=== PATIENT | male | born 1955 | race Caucasian/White ===

== ENCOUNTER 2017-07-18 12:43 | Emergency (ER) | payer MEDICARE, MEDICAID ==
[2017-07-18] MEDS ORDERED: traMADol 50 MG Tab PO ONE (13:10)
[2017-07-18] MEDS ORDERED: Ketorolac 60 MG/2 ML SDV IM ONE (13:10)
[2017-07-18 15:20] VITALS: BP 135/69
--- NOTE | 2017-07-19 03:49 | ER ---
DATE SEEN: 07/18/2017 TIME SEEN: 1300 hours. CHIEF COMPLAINT: Left foot pain. HISTORY OF PRESENT ILLNESS: This is a 61-year-old male, well known to me, comes in with pain in the left foot for 3 days. No trauma. Started swelling, worse with any weightbearing. PAST MEDICAL HISTORY: Alcohol abuse, depression, type 2 diabetes. ALLERGIES: Please see the electronic record. SOCIAL HISTORY: He drinks alcohol. Does not smoke. PHYSICAL EXAMINATION: VITAL SIGNS: Afebrile. GENERAL: He was not in any distress, has odor of alcohol about him. EXTREMITIES: Left foot revealed swelling and tenderness especially in the lateral aspect, but normal peripheral pulses, and the ankle joint was stable and had full range of motion. DIAGNOSTIC DATA: X-ray of the left foot was negative. IMPRESSION: Pain, foot. PLAN: 60 mg of Toradol IM, and I will also send him home with tramadol 50 mg t.i.d. p.r.n. I would like him to be seen in the office in 1 to 2 weeks. A CAM Walker boot was also sent with him. /[id number] DUSTIN/MIGUEL
--- NOTE | 2017-07-22 11:37 | CR ---
INDICATION: Pain. COMPARISON: 25 February 2016. LEFT FOOT SERIES: Multiple (at least two) partially corticated independent bony elements superior to the proximal to mid navicular bone seen on the lateral view, new. Mild soft tissue thickening, representing edema at this region. No other acute fracture, dislocation, destructive change. Open internal fixation fusion metallic fixation elements traverse the second tarsometatarsal joint, intact and nondisplaced with complete osseous fusion stable. Minimal tibiotalar joint, mild mid foot, hind foot, and moderate forefoot degenerative osteoarthritis change minimally increased, in particular forefoot region. IMPRESSION: 1. Acute versus less likely subacute avulsion fractures superior aspect proximal to mid navicular bone, new. 2. Degenerative osteoarthritis change as described, most prominent in the forefoot region, minimally increased. MTDD
== END 2017-07-18 13:50 | disposition home or self-care (01) ==
LOC: FB.ED 12:43
DX: M79.672 Pain in left foot (principal); F32.9 Major depressive disorder, single episode, unspecified; E11.9 Type 2 diabetes mellitus without complications
CPT/HCPCS: 29515; 73630; 96372; 99283; A9270; J1885

== ENCOUNTER 2017-08-25 01:12 | Emergency (ER) | payer MEDICARE, MEDICAID ==
[2017-08-25] MEDS ORDERED: Ketorolac 30 MG/ML SDV IM ONE (01:36)
--- NOTE | 2017-08-25 02:31 | EDM.PDOC ---
ED HPI GENERAL MEDICAL PROBLEM - General Chief Complaint: Back Pain or Injury Stated Complaint: BACK PAIN,DOUBLE VISION Time Seen by Provider: 08/25/17 02:00 Source of Information: Reports: Patient, Old Records History Limitations: Reports: No Limitations - History of Present Illness INITIAL COMMENTS - FREE TEXT/NARRATIVE: 61 yo male with a pHx of chronic low back pain presents with worsening pain over the past at least a week. He had no new injury. No new bowel or bladder incontinence. Has not been to the clinic during the past week. Can't sleep now due to the pain. Is disabled. Onset: Gradual Onset Date: 08/16/17 Duration: Day(s):, Getting Worse Location: Reports: Back (low) Quality: Reports: Ache Severity: Moderate Improves with: Reports: None Worsens with: Reports: None Context: Reports: Other (chronic low back pain) Associated Symptoms: Reports: No Other Symptoms Treatments TELEVISION JOURNALIST: Reports: Other (see below) (Stretching) - Related Data Allergies Allergy/AdvReac Type Severity Reaction Status Date / Time acetaminophen [From Vicodin] Allergy Itching Verified 08/25/17 01:34 hydrocodone [From Vicodin] Allergy Itching Verified 08/25/17 01:34 hydrocodone bitartrate Allergy Itching Verified 08/25/17 01:34 [From Vicodin] Home Meds: Home Meds Acetaminophen/HYDROcodone [[place] 325-5 MG] 1 - 2 tab PO Q4H PRN #20 tab [Rx] Cyclobenzaprine [Flexeril] 10 mg PO TID PRN #14 tab 08/25/17 [Rx] Past Medical History HEENT History: Reports: Epistaxis Cardiovascular History: Reports: Blood Clots/VTE/DVT, Hypertension Other Cardiovascular History: son states that patient is having an enlarged heart Other Respiratory History: Hx of broken ribs Gastrointestinal History: Reports: GERD Genitourinary History: Reports: Prostate Disorder Musculoskeletal History: Reports: Arthritis, Back Pain, Chronic, Fracture Other Musculoskeletal History: 3 R fx ribs Neurological History: Reports: CVA Psychiatric History: Reports: Addiction, Depression, Other (See Below) Other Psychiatric History: Recent hospitalizations related to alcohol use. Endocrine/Metabolic History: Reports: Diabetes, Type II, Obesity/BMI 30+ Dermatologic History: Reports: Other (See Below) Other Dermatologic History: psoriasis - Infectious Disease History Infectious Disease History: Reports: Chicken Pox, Influenza, Measles, Mumps - Past Surgical History GI Surgical History: Reports: Hernia, Abdominal, Other (See Below) Male Surgical History: Reports: Other (See Below) Musculoskeletal Surgical History: Reports: Arthroscopic Knee Social & Family History - Family History Family Medical History: Noncontributory HEENT: Reports: Macular Degeneration Cardiac: Reports: Hypertension, [place], Other (See Below) Other Cardiac Family History: filter in vein Respiratory: Reports: None GI: Reports: PUD OBGYN: Reports: Musculoskeletal: Reports: Arthritis Neurological: Reports: Alzheimers Disease, CVA Psychiatric: Reports: Bipolar, Depression Endocrine/Metabolic: Reports: None Oncologic: Reports: Other (See Below) Other Oncologic Family History: non specific comments about family - Tobacco Use Smoking Status *Q: Never Smoker Years of Tobacco use: 15 Packs/Tins Daily: 1 Used Tobacco, but Quit: Yes Month Tobacco Last Used: unknown Second Hand Smoke Exposure: No - Caffeine Use Caffeine Use: Reports: Coffee, Soda - Alcohol Use Days Per Week of Alcohol Use: 1 Number of Drinks Per Day: 1 Total Drinks Per Week: 1 - Recreational Drug Use Recreational Drug Use: Yes Drug Use in Last 12 Months: Yes Recreational Drug Type: Reports: Methamphetamine Recreational Drug Use Frequency: Socially - Living Situation & Occupation Living situation: Reports: Occupation: Other ED ROS GENERAL - Review of Systems Review Of Systems: See Below Constitutional: Reports: No Symptoms HEENT: Reports: No Symptoms Respiratory: Reports: No Symptoms Cardiovascular: Reports: No Symptoms GI/Abdominal: Reports: No Symptoms : Reports: No Symptoms Musculoskeletal: Reports: Back Pain Skin: Reports: No Symptoms Neurological: Reports: No Symptoms Psychiatric: Reports: No Symptoms ED EXAM,LOWER BACK PAIN/INJURY - Physical Exam Exam: See Below Exam Limited By: No Limitations General Appearance: Alert, WD/WN, No Apparent Distress, Obese GI/Abdominal: Other (Obese abdomen) Back Exam: Normal Inspection, Vertebral Tenderness, Other (Tender across the beltline including over the lumbar spine. No muscle spasm of the paraspinous muscles. ). No: CVA Tenderness (R), CVA Tenderness (L) Extremities: Normal Inspection, Normal Range of Motion, Non-Tender Neurological: Alert, Normal Mood/Affect, CN II-XII Intact, No Motor/Sensory Deficits, Oriented x 3 Psychiatric: Normal Affect, Normal Mood Skin Exam: Warm, Dry, Intact, Normal Color, No Rash Lymphatic: No Adenopathy Course - Orders/Labs/Meds Meds: Medications Discontinued Medications Generic Name Dose Route Start Last Admin Trade Name Freq PRN Reason Stop Dose Admin Ketorolac Tromethamine 30 mg 08/25/17 01:36 08/25/17 01:44 Toradol IM 08/25/17 01:37 30 mg ONETIME ONE Administration Departure - Departure Time of Disposition: 02:35 Disposition: Home, Self-Care 01 Condition: Fair Clinical Impression: Acute exacerbation of chronic low back pain - Discharge Information Prescriptions: Acetaminophen/HYDROcodone [[place] 325-5 MG] 1 - 2 tab PO Q4H PRN #20 tab PRN Reason: Pain Cyclobenzaprine [Flexeril] 10 mg PO TID PRN #14 tab PRN Reason: Pain Referrals: PCP,None [Primary Care Provider] - Forms: ED Department Discharge Additional Instructions: Take ibuprofen 400 mg every 6 hrs with food. Add Flexeril and [place] as directed for additional pain relief. F/U with a provider of your choice for recheck. No driving when taking [place] or Flexeril.
[2017-08-25] MEDS ORDERED: Acetaminophen/HYDROcodone 325-5 MG Tab PO ONE (02:34)
[2017-08-25] MEDS ORDERED: Cyclobenzaprine 10 MG Tab PO ONE (02:34)
[2017-08-25 03:25] VITALS: BP 145/73
== END 2017-08-25 02:45 | disposition home or self-care (01) ==
LOC: FB.ED 01:12
DX: G89.29 Other chronic pain (principal); M54.5 Low back pain; E66.9 Obesity, unspecified; E11.9 Type 2 diabetes mellitus without complications; Z86.73 Personal history of transient ischemic attack (TIA), and cerebral infarction without residual deficits
CPT/HCPCS: 96372; 99282; A9270; J1885; 99283

== ENCOUNTER 2017-09-24 10:10 | Emergency (ER) | payer MEDICARE, MEDICAID ==
[2017-09-24 11:50] VITALS: BP 124/70
--- NOTE | 2017-09-26 10:18 | ER ---
DATE SEEN: 09/24/2017 TIME SEEN: The patient was seen at 1015 hours. HISTORY OF PRESENT ILLNESS: This 61-year-old who is known to be an alcoholic, notes he drinks alcohol and he acknowledges it himself, and he keeps saying "I am not going to tell you nothing but truth." Notes he has pain in his left chest. He denies recent fall, but he has possibly drank and did not know he fell. PAST MEDICAL HISTORY: Significant for obesity, alcoholism, hypertension, diabetes type 2, depression, obstructive sleep apnea, rib fractures, hypomagnesemia, hypokalemia, dyslipidemia, gallbladder disease, and right shoulder pain. Currently when he takes a deep breath, it causes pain in his left chest. Denies recent fever or productive cough. He denies acid peptic disease, symptoms of burning discomfort, pain with eating, relief of pain after eating, GERD, back pain, abdominal pain, or ear pain. Denies previous hepatitis. Denies blood in his stool, black tarry stool, reflux, or constipation. Musculoskeletal, he notes he has had a right wrist fracture, not too long ago and he has had a splint in it. Had previous history of GERD/esophagitis. CURRENT MEDICATIONS: Not listed on the chart. The patient states he does not take any home medicines, but he has pain pill and Flexeril listed as medicines. We do not have a list of other medicines and the pharmacy is not open to validate his information. REVIEW OF SYSTEMS: HEENT: He denies compromised sinus or sinus congestion, sore throat, or sinus pressure. Ear problems, he has decreased hearing. CARDIORESPIRATORY: He denies chest pain or irregular heartbeat, but he has end- inspiratory chest discomfort with taking a deep breath on the left chest. Denies recent fever. GI: Denies GERD, abdominal discomfort, hepatitis, diarrhea, constipation, blood in the stool, black tarry stool, or flank pain. : Negative. MUSCULOSKELETAL: Negative, although he has mild arthritis of lower extremities. NEURO: Negative. PSYCHIATRIC: Depression. Also history of obstructive sleep apnea. PHYSICAL EXAMINATION: VITAL SIGNS: Blood pressure 124/70, heart rate 101, respirations 18, oxygen saturation 98, temperature is 36.4, 107.5 kg, BMI 32.1. CONSTITUTIONAL: Fair dressed, fair hygiene. He is unshaven. He has decreased hearing. NECK: No bruits. Pharynx without abnormality. No thyromegaly or masses of neck. LUNGS: Clear to auscultation. There are no rales, no rhonchi. HEART: S1, S2. No murmur. No irregularity of heart. CHEST WALL: Left chest wall 8th and 9th ribs, anterior axillary line, moderately tender to palpation. He does not want me to touch them. He has a `[id number]' response. ABDOMEN: Soft. No guarding. No abdominal discomfort. Markedly increased abdominal girth. No bruits. EXTREMITIES: Without pedal edema. Deep tendon reflexes hypoactive in upper and lower extremities. Cranial nerves 2 through 12 intact except for decreased hearing. LABORATORY DATA: Chest x-ray reveals marked cardiomegaly. No fractured ribs. Has mild atelectasis on left side, supradiaphragmatic left lower base of lung and mild atelectasis of right base of lung. ASSESSMENT: 1. Left chest contusion without fracture. 2. Costochondritis, left chest wall 8th and 9th ribs. 3. Morbid obesity. The patient has probably noncompliance with his drugs. He does not know what medicines he is taking. The patient did not have a tachycardia when I examined him, but early on the nurse noted tachycardia. Deconditioning is markedly significant. PLAN: Vicodin for pain. Also, he has extensive psoriasis of the scalp. Massive crusting, white crust noted. Treat with triamcinolone, coal tar shampoo, and Cortisporin Otic drops for ears. Follow up with doctor in 1 week or earlier if worse. /[id number] MALCOLM/MIGUEL GARCIA
--- NOTE | 2017-09-26 11:30 | CR ---
INDICATION: Fell onto chest. LEFT RIBS WITH CHEST: CHEST: PA view of the chest 09/24/2017, compared with 11/14/2016 and 09/04/2016 , again revealed the heart to be enlarged with tortuous aorta calcified in the arch area minimally. Poor inspiration is noted, emphasizing markings and making it difficult to exclude minimal patchy bronchopneumonia at the lung bases or possibly contusion. A definite pneumothorax or pleural effusion was not identified. Mild dextroconvex scoliosis upper thoracic spine is noted. No gross consolidating pneumonia was identified. IMPRESSION: 1. Study limited by poor inspiration. No definite acute process. 2. Possible ASHD. Cannot exclude mild cardiomegaly. LEFT RIBS: Three views of the left ribs revealed a slightly offset fracture at the distal - anterolateral - aspect of the 7th left rib. There is question of an undisplaced fracture at the 6th rib in a similar location - this latter 6th rib possible fracture site - could not be confirmed on other images. IMPRESSION: Definite fracture of the 7th left rib anterolaterally with minimal offset - 1 to 2 mm. Report was called to Dr. Amador for Dr. Cosme at 1020 hours, 2016. [facility]
== END 2017-09-24 12:05 | disposition home or self-care (01) ==
LOC: FB.ED 10:10
DX: S20.212A Contusion of left front wall of thorax, initial encounter (principal); E66.01 Morbid (severe) obesity due to excess calories; M94.0 Chondrocostal junction syndrome [Tietze]; X58.XXXA Exposure to other specified factors, initial encounter; E11.9 Type 2 diabetes mellitus without complications; I10 Essential (primary) hypertension; E78.5 Hyperlipidemia, unspecified; Z68.32 Body mass index [BMI] 32.0-32.9, adult
CPT/HCPCS: 71101-LT; 99283

== ENCOUNTER 2017-09-28 01:49 | Emergency (ER) | payer MEDICARE, MEDICAID ==
[2017-09-28 02:18] VITALS: BP 140/105
== END 2017-09-28 02:38 | disposition left against medical advice (07) ==
LOC: FB.ED 01:49
DX: Z53.21 Procedure and treatment not carried out due to patient leaving prior to being seen by health care provider (principal)
CPT/HCPCS: 99282

== ENCOUNTER 2017-10-01 09:17 | Emergency (ER) | payer MEDICARE, MEDICAID ==
[2017-10-01] MEDS ORDERED: Sodium Chloride 0.9% 10 ML Syringe FLUSH PRN (09:26)
[2017-10-01] MEDS ORDERED: LORazepam 2 MG/ML MDV IVPUSH ONE (09:47)
[2017-10-01] MEDS ORDERED: Ondansetron 4 MG/2 ML SDV IVPUSH ONE (09:48)
[2017-10-01] MEDS ORDERED: Diltiazem 25 MG/5 ML SDV IVPUSH ONE (09:51)
[2017-10-01] MEDS ORDERED: Diltiazem 100 MG in Sodium Chloride 0.9% 100 ML IV SCH (10:00)
[2017-10-01] MEDS ORDERED: MVI, Adult with Vitamin K 10 ML, Thiamine 100 MG, Folic Acid 1 MG, Magnesium Sulfate 3 ... IV SCH ×5 (10:30)
[2017-10-01 11:06] VITALS: BP 154/103
--- NOTE | 2017-10-01 11:22 | EDM.PDOC ---
ED HPI GENERAL MEDICAL PROBLEM - General Chief Complaint: Cardiovascular Problem Stated Complaint: WEAKNESS AND TREMERS Time Seen by Provider: 10/01/17 09:30 Source of Information: Reports: Patient History Limitations: Reports: No Limitations - History of Present Illness INITIAL COMMENTS - FREE TEXT/NARRATIVE: Patient is a 61 year old man who is a chronic alcoholic who drank last yesterday. He awoke today tremoring severely and he has some chest pain from recent rib fractures that is worse. He also was too weak to get up and out of bed so he called for the ambulance to assist him and bring him here. Onset: Today Onset Date: 10/01/17 Onset Time: 08:00 Duration: Hour(s): (2), Getting Worse Location: Reports: Generalized Quality: Reports: Ache Severity: Moderate Improves with: Reports: None Worsens with: Reports: Movement Context: Reports: Other (Chronic alcoholic) Associated Symptoms: Reports: Weakness general Pain Score (Numeric/FACES): 8 ribs right Pain Score (Numeric/FACES): 8 - Related Data Allergies Allergy/AdvReac Type Severity Reaction Status Date / Time hydrocodone [From Vicodin] Allergy Itching Verified 10/01/17 10:33 hydrocodone bitartrate Allergy Itching Verified 10/01/17 10:33 [From Vicodin] Home Meds: Home Meds NK [No Known Home Meds] 10/01/17 [History] Past Medical History HEENT History: Reports: Epistaxis Cardiovascular History: Reports: Arrhythmia, Blood Clots/VTE/DVT, Hypertension Other Cardiovascular History: son states that patient is having an enlarged heart, has irreg HR. Stopped taking BP meds, 'I don't like taking medications. Respiratory History: Reports: Asthma Other Respiratory History: Hx of broken ribs Gastrointestinal History: Reports: Cholelithiasis, Cirrhosis, GERD Other Gastrointestinal History: alcoholic cirrhosis Genitourinary History: Reports: Prostate Disorder Musculoskeletal History: Reports: Arthritis, Back Pain, Chronic, Fracture Other Musculoskeletal History: 3 R fx ribs, fx back, fx L foot Neurological History: Reports: Concussion, CVA Psychiatric History: Reports: Addiction, Anxiety, Depression, Other (See Below) Other Psychiatric History: Recent hospitalizations related to alcohol use. States was in tx x 1 in past. Endocrine/Metabolic History: Reports: Diabetes, Type II, Obesity/BMI 30+ Dermatologic History: Reports: Psoriasis, Other (See Below) Other Dermatologic History: psoriasis - Infectious Disease History Infectious Disease History: Reports: Other (See Below) Other Infectious Disease History: unknown, can't remember. - Past Surgical History HEENT Surgical History: Reports: None GI Surgical History: Reports: Cholecystectomy, Hernia, Abdominal, Other (See Below) Other GI Surgeries/Procedures: needed to have mesh removed from abdomen due to infection. Neurological Surgical History: Reports: None Musculoskeletal Surgical History: Reports: Arthroscopic Knee, ORIF Other Musculoskeletal Surgeries/Procedures:: bilat knee scopes, L foot surgery Social & Family History - Family History Family Medical History: Noncontributory HEENT: Reports: Macular Degeneration Cardiac: Reports: Hypertension, ID, Other (See Below) Other Cardiac Family History: filter in vein Respiratory: Reports: None GI: Reports: PUD OBGYN: Reports: Musculoskeletal: Reports: Arthritis Neurological: Reports: Alzheimers Disease, CVA Psychiatric: Reports: Bipolar, Depression Endocrine/Metabolic: Reports: None Oncologic: Reports: Other (See Below) Other Oncologic Family History: non specific comments about family - Tobacco Use Smoking Status *Q: Former Smoker Years of Tobacco use: 20 Packs/Tins Daily: 1 Used Tobacco, but Quit: Yes Month Tobacco Last Used: 2006 Second Hand Smoke Exposure: No - Caffeine Use Caffeine Use: Reports: None - Alcohol Use Days Per Week of Alcohol Use: 7 Number of Drinks Per Day: 5 Total Drinks Per Week: 35 - Recreational Drug Use Recreational Drug Use: No Drug Use in Last 12 Months: Yes Recreational Drug Type: Reports: Methamphetamine Recreational Drug Use Frequency: Socially - Living Situation & Occupation Living situation: Reports: Occupation: Other ED ROS GENERAL - Review of Systems Review Of Systems: See Below Constitutional: Reports: Weakness HEENT: Reports: No Symptoms Respiratory: Reports: No Symptoms Cardiovascular: Reports: Chest Pain Endocrine: Reports: No Symptoms GI/Abdominal: Reports: No Symptoms : Reports: No Symptoms Musculoskeletal: Reports: No Symptoms Skin: Reports: Rash (Psoriasis) Neurological: Reports: Weakness Psychiatric: Reports: Anxiety Hematologic/Lymphatic: Reports: No Symptoms ED EXAM, GENERAL - Physical Exam Exam: See Below Exam Limited By: No Limitations General Appearance: Alert, WD/WN, No Apparent Distress Eye Exam: Bilateral Eye: EOMI, Normal Fundi, Normal Inspection, PERRL Ears: Normal External Exam, Normal Canal, Hearing Grossly Normal, Normal TMs Ear Exam: Bilateral Ear: Auricle Normal, Canal Normal, TM normal Nose: Normal Inspection, Normal Mucosa, No Blood Throat/Mouth: Normal Inspection, Normal Lips, Normal Teeth, Normal Gums, Normal Oropharynx, Normal Voice, No Airway Compromise Head: Atraumatic, Normocephalic Neck: Normal Inspection, Supple, Non-Tender, Full Range of Motion Respiratory/Chest: No Respiratory Distress, Lungs Clear, Normal Breath Sounds, No Accessory Muscle Use, Chest Non-Tender Cardiovascular: Normal Peripheral Pulses, No Edema, No Gallop, No JVD, No Murmur , No Rub, Irregularly Irregular, Other (EKG shows patient is in Atrial Fibrillation/PSVT) GI/Abdominal: Normal Bowel Sounds, Soft, Non-Tender, No Organomegaly, No Distention, No Abnormal Bruit, No Mass Back Exam: Normal Inspection, Full Range of Motion, NT Extremities: Normal Inspection, Normal Range of Motion, Non-Tender, Normal Capillary Refill, No Pedal Edema Neurological: Alert, Oriented, CN II-XII Intact, Other (Tremoring severely on admission.) Psychiatric: Anxious EKG INTERPRETATION EKG Date: 10/01/17 Rhythm: A-Fib [place]: Normal P-Wave: Absent QRS: Normal ST-T: Normal QT: Prolonged Comparison: Change From Previous EKG Course - Vital Signs Text/Narrative:: Patient was given 1 mg of Lorazepam and a Banana Bag and that took away his tremors and made him feel much better. He then went into PSVT, a Cardizem bolus and then drip was started which decreased his heart rate to 110 and showed that the rhythm was Atrial Fibrillation. Discussed with Dr. Hughes and he feels that given his elevated Troponin and the alcohol withdrawal, that he would be better in [facility]. 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 Last Recorded V/S: Last Vital Signs Temp 36.6 C 10/01/17 09:20 Pulse 130 H 10/01/17 10:09 Resp 22 H 10/01/17 09:20 BP 152/97 H 10/01/17 10:09 Pulse Ox 92 L 10/01/17 09:20 - Orders/Labs/Meds Orders: Active Orders 24 hr Category Date Time Status EKG Documentation Completion [RC] ASDIRECTED Care 10/01/17 09:26 Active Chest 1V Frontal [CR] Stat Exams 10/01/17 09:25 Taken Diltiazem [Cardizem] 100 mg Med 10/01/17 10:00 Active Sodium Chloride 0.9% [Normal Saline] 100 ml IV TITRATE MVI, Adult with Vitamin K [Infuvite Adult] 10 ml Med 10/01/17 10:30 Active Thiamine [Vitamin B-1] 100 mg Folic Acid 1 mg Magnesium Sulfate [Magnesium Sulfate 50%] 3 gm Sodium Chloride 0.9% [Normal Saline] 1,000 ml IV ASDIRECTED Sodium Chloride 0.9% [Saline Flush] Med 10/01/17 09:26 Active 10 ml FLUSH ASDIRECTED PRN Saline Lock Insert [OM.PC] Routine Oth 10/01/17 09:26 Ordered EKG 12 Lead [EK] Routine Ther 10/01/17 09:25 Ordered Medication Orders Diltiazem HCl 100 mg/ Sodium (Chloride) 100 mls @ 5 mls/hr IV TITRATE ADRIAN; 5 MG /HR PRN Reason: Protocol Last Admin: 10/01/17 10:09 Dose: 5 mg/hr, 5 mls/hr Multivitamins/Minerals 10 ml/Thiamine HCl 100 mg/ Folic Acid 1 mg/ Magnesium Sulfate 3 gm/ Sodium Chloride 1,017.2 mls @ 250 mls/hr IV ASDIRECTED ADRIAN Last Admin: 10/01/17 10:46 Dose: 250 mls/hr Sodium Chloride (Saline Flush) 10 ml FLUSH ASDIRECTED PRN PRN Reason: Keep Vein Open Labs: Laboratory Tests 10/01/17 10/01/17 10/01/17 Range/Units 09:50 09:50 09:50 WBC 5.5 (4.5-12.0) X10-3/uL RBC 4.27 L (4.30-5.75) x10(6)uL Hgb 14.9 D (11.5-15.5) g/dL Hct 43.4 (30.0-51.3) % MCV 101.5 H (80-96) fL MCH 34.9 H (27.7-33.6) pg MCHC 34.4 (32.2-35.4) g/dL RDW 15.2 (11.5-15.5) % Plt Count 51 L (125-369) X10(3)uL MPV 10.5 H (7.4-10.4) fL Add Manual Diff Yes Neutrophils % (Manual) 75 (46-82) % Lymphocytes % (Manual) 16 (13-37) % Monocytes % (Manual) 8 (4-12) % Eosinophils % (Manual) 1 (0-5) % Macrocytosis Few Sodium 138 (135-145) mmol/L Potassium 3.3 L (3.5-5.3) mmol/L Chloride 105 D (100-110) mmol/L Carbon Dioxide 18 L (23-29) mmol/L BUN 14 (8-23) mg/dL Creatinine 0.7 (0.6-1.3) mg/dL Est Cr Clr Drug Dosing 121.63 mL/min Estimated GFR (MDRD) > 60 (>60) BUN/Creatinine Ratio 20.0 (9-20) Glucose 188 H (80-116) mg/dL Calcium 9.3 (8.6-10.2) mg/dL Total Bilirubin 4.2 H (0.1-1.3) mg/dL AST 176 H D (5-27) IU/L ALT 62 H D (14-26) IU/L Alkaline Phosphatase 136 H (56-112) IU/L Troponin I 0.08 H (0.02-0.06) NG/ML Total Protein 7.6 (6.0-8.0) g/dL Albumin 3.1 L (3.2-4.6) g/dL Globulin 4.5 g/dL Albumin/Globulin Ratio 0.7 Ethyl Alcohol (<0.01) % 10/01/17 Range/Units 09:50 WBC (4.5-12.0) X10-3/uL RBC (4.30-5.75) x10(6)uL Hgb (11.5-15.5) g/dL Hct (30.0-51.3) % MCV (80-96) fL MCH (27.7-33.6) pg MCHC (32.2-35.4) g/dL RDW (11.5-15.5) % Plt Count (125-369) X10(3)uL MPV (7.4-10.4) fL Add Manual Diff Neutrophils % (Manual) (46-82) % Lymphocytes % (Manual) (13-37) % Monocytes % (Manual) (4-12) % Eosinophils % (Manual) (0-5) % Macrocytosis Sodium (135-145) mmol/L Potassium (3.5-5.3) mmol/L Chloride (100-110) mmol/L Carbon Dioxide (23-29) mmol/L BUN (8-23) mg/dL Creatinine (0.6-1.3) mg/dL Est Cr Clr Drug Dosing mL/min Estimated GFR (MDRD) (>60) BUN/Creatinine Ratio (9-20) Glucose (80-116) mg/dL Calcium (8.6-10.2) mg/dL Total Bilirubin (0.1-1.3) mg/dL AST (5-27) IU/L ALT (14-26) IU/L Alkaline Phosphatase (56-112) IU/L Troponin I (0.02-0.06) NG/ML Total Protein (6.0-8.0) g/dL Albumin (3.2-4.6) g/dL Globulin g/dL Albumin/Globulin Ratio Ethyl Alcohol 0.02 H (<0.01) % Meds: Medications Generic Name Dose Route Start Last Admin Trade Name Freq PRN Reason Stop Dose Admin Diltiazem HCl 100 mg/ Sodium 100 mls @ 5 mls/hr 10/01/17 10:00 10/01/17 10:09 Chloride IV 5 mg/hr TITRATE ADRIAN 5 mls/hr Protocol Administration 5 MG/HR Multivitamins/Minerals 10 ml/ 1,017.2 mls @ 250 mls/hr 10/01/17 10:30 10:46 Thiamine HCl 100 mg/ Folic IV 250 mls/hr Acid 1 mg/ Magnesium Sulfate 3 ASDIRECTED ADRIAN Administration gm/ Sodium Chloride Sodium Chloride 10 ml 10/01/17 09:26 Saline Flush FLUSH ASDIRECTED PRN Keep Vein Open Discontinued Medications Generic Name Dose Route Start Last Admin Trade Name Freq PRN Reason Stop Dose Admin Diltiazem HCl 25 mg 10/01/17 09:51 10/01/17 09:59 Diltiazem IVPUSH 10/01/17 09:52 25 mg ONETIME ONE Administration Lorazepam 1 mg 10/01/17 09:47 10/01/17 10:25 Ativan IVPUSH 10/01/17 09:48 1 mg ONETIME ONE Administration Ondansetron HCl 4 mg 10/01/17 09:48 10/01/17 10:21 Zofran IVPUSH 10/01/17 09:49 4 mg ONETIME ONE Administration Departure - Departure Time of Disposition: 11:31 Disposition: DC/Tfer to Acute Hospital 02 Reason for Transfer *Q: Other Condition: Fair Clinical Impression: Alcohol dependence with withdrawal with complication, Atrial fib/flutter, transient, Elevated troponin I level Referrals: Stan Hughes MD [Primary Care Provider] - Forms: ED Department Discharge - My Orders Last 24 Hours: My Active Orders 10/01/17 09:25 Chest 1V Frontal [CR] Stat EKG 12 Lead [EK] Routine 10/01/17 09:26 EKG Documentation Completion [RC] ASDIRECTED Sodium Chloride 0.9% [Saline Flush] 10 ml FLUSH ASDIRECTED PRN Saline Lock Insert [OM.PC] Routine 10/01/17 10:00 Diltiazem [Cardizem] 100 mg Sodium Chloride 0.9% [Normal Saline] 100 ml IV TITRATE 10/01/17 10:30 MVI, Adult with Vitamin K [Infuvite Adult] 10 ml Thiamine [Vitamin B-1] 100 mg Folic Acid 1 mg Magnesium Sulfate [Magnesium Sulfate 50%] 3 gm Sodium Chloride 0.9% [Normal Saline] 1,000 ml IV ASDIRECTED - Assessment/Plan Last 24 Hours: My Active Orders 10/01/17 09:25 Chest 1V Frontal [CR] Stat EKG 12 Lead [EK] Routine 10/01/17 09:26 EKG Documentation Completion [RC] ASDIRECTED Sodium Chloride 0.9% [Saline Flush] 10 ml FLUSH ASDIRECTED PRN Saline Lock Insert [OM.PC] Routine 10/01/17 10:00 Diltiazem [Cardizem] 100 mg Sodium Chloride 0.9% [Normal Saline] 100 ml IV TITRATE 10/01/17 10:30 MVI, Adult with Vitamin K [Infuvite Adult] 10 ml Thiamine [Vitamin B-1] 100 mg Folic Acid 1 mg Magnesium Sulfate [Magnesium Sulfate 50%] 3 gm Sodium Chloride 0.9% [Normal Saline] 1,000 ml IV ASDIRECTED
--- NOTE | 2017-10-03 13:11 | CR ---
INDICATION: Chest pain. CHEST: A single view of the chest was obtained. The right costophrenic angle was not included on the study, limiting the examination somewhat. The date is 10/01/2017. Findings are compared with 09/24/2017 and 11/14/2016. The heart appears enlarged, as previously. The aorta is calcified in the arch area and slightly tortuous. A definite active infiltrate or effusion was not identified. Evidence of exogenous obesity is noted. IMPRESSION: 1. ASHD with cardiomegaly. 2. No definite acute process. 3. Exogenous obesity. MTDD
== END 2017-10-01 11:45 ==
LOC: FB.ED 09:17
DX: F10.239 Alcohol dependence with withdrawal, unspecified (principal); E66.9 Obesity, unspecified; I48.92 Unspecified atrial flutter; I48.91 Unspecified atrial fibrillation; R79.89 Other specified abnormal findings of blood chemistry; Z87.891 Personal history of nicotine dependence; Z88.8 Allergy status to other drugs, medicaments and biological substances; Y90.0 Blood alcohol level of less than 20 mg/100 ml
CPT/HCPCS: 36415; 71010; 80053; 84484; 85025; 93005; 96365; 96366; 96375; 96376; 99285; G0480; J2060; J2405; J3411; J3475; J3490; J7030; J7040

== ENCOUNTER 2017-12-19 17:31 | Emergency (ER) | payer MEDICAID, MEDICARE ==
[2017-12-19] MEDS ORDERED: Sodium Chloride 0.9% 10 ML Syringe FLUSH PRN (17:47)
--- NOTE | 2017-12-19 17:58 | EDM.PDOC ---
ED HPI GENERAL MEDICAL PROBLEM - General Chief Complaint: Respiratory Problem Stated Complaint: CHEST PAIN Time Seen by Provider: 12/19/17 17:35 Source of Information: Reports: Patient, EMS, Old Records History Limitations: Reports: Other (patient is a poor historian) - History of Present Illness INITIAL COMMENTS - FREE TEXT/NARRATIVE: 62 yo male with chronic afib, obesity, and worsening leg edema presents via EMS on referral from the [facility]. He states a doctor did not see him there. Went to the clinic via private vehicle for SOB/dizziness that occurred going down the stairs at his apartment. Is not normally on oxygen. Has been having occasional spells of SOB at night that awakens him. Claims he hasn't drank in 3 mos, but has a long hx of alcohol abuse. Abdomen and legs both larger than usual. Does not smoke. No chest pain reported. Onset: Other (on and off with a trend toward worsening over the past few weeks.) Duration: Week(s):, Waxing/Waning Location: Reports: Other (legs and abdomen increasing in size.) Quality: Reports: Other (no pain) Severity: Moderate Improves with: Reports: Rest Worsens with: Reports: Movement Context: Reports: Other (fluid retention worsening) Associated Symptoms: Reports: Shortness of Breath, Other (light-headness). 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) - Related Data Allergies Allergy/AdvReac Type Severity Reaction Status Date / Time hydrocodone [From Vicodin] Allergy Itching Verified 12/19/17 17:56 hydrocodone bitartrate Allergy Itching Verified 12/19/17 17:56 [From Vicodin] Home Meds: Home Meds Carvedilol [Carvedilol] 12.5 mg PO BID 12/19/17 [History] DULoxetine HCl [Duloxetine HCl] 60 mg PO DAILY 12/19/17 [History] Diclofenac Sodium [Voltaren] 75 mg PO BID 12/19/17 [History] Diltiazem HCl [Cartia Xt] 120 mg PO DAILY 12/19/17 [History] Lactulose [Lactulose] 30 ml PO BID 12/19/17 [History] Naltrexone [Naltrexone] 50 mg PO DAILY 12/19/17 [History] Ranitidine [Zantac] 75 mg PO BEDTIME 12/19/17 [History] Past Medical History HEENT History: Reports: Epistaxis Cardiovascular History: Reports: Arrhythmia, Blood Clots/VTE/DVT, Hypertension Other Cardiovascular History: son states that patient is having an enlarged heart, has irreg HR. Stopped taking BP meds, 'I don't like taking medications. Respiratory History: Reports: Asthma Other Respiratory History: Hx of broken ribs Gastrointestinal History: Reports: Cholelithiasis, Cirrhosis, GERD Other Gastrointestinal History: alcoholic cirrhosis Genitourinary History: Reports: Prostate Disorder Musculoskeletal History: Reports: Arthritis, Back Pain, Chronic, Fracture Other Musculoskeletal History: 3 R fx ribs, fx back, fx L foot Neurological History: Reports: Concussion, CVA Psychiatric History: Reports: Addiction, Anxiety, Depression, Other (See Below) Other Psychiatric History: Recent hospitalizations related to alcohol use. States was in tx x 1 in past. Endocrine/Metabolic History: Reports: Diabetes, Type II, Obesity/BMI 30+ Dermatologic History: Reports: Psoriasis, Other (See Below) Other Dermatologic History: psoriasis - Infectious Disease History Infectious Disease History: Reports: Other (See Below) Other Infectious Disease History: unknown, can't remember. - Past Surgical History HEENT Surgical History: Reports: None GI Surgical History: Reports: Cholecystectomy, Hernia, Abdominal, Other (See Below) Other GI Surgeries/Procedures: needed to have mesh removed from abdomen due to infection. Neurological Surgical History: Reports: None Musculoskeletal Surgical History: Reports: Arthroscopic Knee, ORIF Other Musculoskeletal Surgeries/Procedures:: bilat knee scopes, L foot surgery Social & Family History - Family History Family Medical History: Noncontributory HEENT: Reports: Macular Degeneration Cardiac: Reports: Hypertension, [place], Other (See Below) Other Cardiac Family History: filter in vein Respiratory: Reports: None GI: Reports: PUD OBGYN: Reports: Musculoskeletal: Reports: Arthritis Neurological: Reports: Alzheimers Disease, CVA Psychiatric: Reports: Bipolar, Depression Endocrine/Metabolic: Reports: None Oncologic: Reports: Other (See Below) Other Oncologic Family History: non specific comments about family - Tobacco Use Smoking Status *Q: Former Smoker Years of Tobacco use: 20 Packs/Tins Daily: 1 Used Tobacco, but Quit: Yes Month Tobacco Last Used: 2006 Second Hand Smoke Exposure: No - Caffeine Use Caffeine Use: Reports: None - Alcohol Use Days Per Week of Alcohol Use: 7 Number of Drinks Per Day: 5 Total Drinks Per Week: 35 - Recreational Drug Use Recreational Drug Use: No Drug Use in Last 12 Months: Yes Recreational Drug Type: Reports: Methamphetamine Recreational Drug Use Frequency: Socially - Living Situation & Occupation Living situation: Reports: Occupation: Other ED ROS GENERAL - Review of Systems Review Of Systems: See Below Constitutional: Reports: No Symptoms HEENT: Reports: No Symptoms Respiratory: Reports: Shortness of Breath. Denies: Wheezing, Cough, Sputum, Hemoptysis Cardiovascular: Reports: Dyspnea on Exertion, Lightheadedness. Denies: Chest Pain, Palpitations (not aware) GI/Abdominal: Reports: Other (increased girth). Denies: Abdominal Pain, Black Stool, Bloody Stool, Constipation, Diarrhea, Decreased Appetite, Difficulty Swallowing, Distension, Flatus, Hematemesis, Hematochezia, Melena, Nausea, Vomiting : Reports: No Symptoms Musculoskeletal: Reports: No Symptoms Skin: Reports: No Symptoms Neurological: Reports: No Symptoms Psychiatric: Reports: No Symptoms ED EXAM, GENERAL - Physical Exam Exam: See Below Exam Limited By: No Limitations General Appearance: Alert, WD/WN, No Apparent Distress, Obese Eye Exam: Bilateral Eye: Normal Inspection Ears: Normal External Exam, Normal Canal, Hearing Grossly Normal, Normal TMs Ear Exam: Bilateral Ear: Auricle Normal, Canal Normal, TM normal Nose: Normal Inspection, Normal Mucosa, No Blood Throat/Mouth: Normal Lips, Normal Oropharynx, Normal Voice, No Airway Compromise , Other Head: Atraumatic, Normocephalic Neck: Normal Inspection Respiratory/Chest: No Respiratory Distress, Lungs Clear, Normal Breath Sounds, No Accessory Muscle Use Cardiovascular: Irregularly Irregular GI/Abdominal: Soft, Non-Tender, Distended. No: Guarding, Rigid, Rebound, Tender Extremities: Pedal Edema. No: Leg Pain, Limited Range of Motion Neurological: Alert, Oriented, CN II-XII Intact, Normal Cognition (normal for him), No Motor/Sensory Deficits Psychiatric: Normal Affect, Normal Mood Skin Exam: Warm, Dry, Intact, Normal Color, No Rash Lymphatic: No Adenopathy Course - Vital Signs Text/Narrative:: Less SOB after furosemide 40 mg IV and spironolactone 50 mg po Last Recorded V/S: Last Vital Signs Temp 36.9 C 12/19/17 17:31 Pulse 78 12/19/17 17:31 Resp 18 12/19/17 17:31 BP 139/69 12/19/17 17:31 Pulse Ox 98 12/19/17 17:31 - Orders/Labs/Meds Orders: Active Orders 24 hr Category Date Time Status Cardiac Monitoring [RC] .As Directed Care 12/19/17 17:46 Active EKG Documentation Completion [RC] ASDIRECTED Care 12/19/17 17:47 Active Oxygen Therapy NICU [Oxygen Therapy, ED] [RC] Care 12/19/17 17:47 Active ASDIRECTED Chest 1V Frontal [CR] Stat Exams 12/19/17 17:49 Taken UA W/MICROSCOPIC [URIN] Stat Lab 12/19/17 17:48 Uncollected Sodium Chloride 0.9% [Saline Flush] Med 12/19/17 17:47 Active 10 ml FLUSH ASDIRECTED PRN Saline Lock Insert [OM.PC] Routine Oth 12/19/17 17:47 Ordered EKG 12 Lead [EK] Routine Ther 12/19/17 17:47 Ordered Medication Orders Sodium Chloride (Saline Flush) 10 ml FLUSH ASDIRECTED PRN PRN Reason: Keep Vein Open Last Admin: 12/19/17 19:00 Dose: 10 ml Labs: Laboratory Tests 12/19/17 12/19/17 12/19/17 Range/Units 17:45 17:45 17:45 WBC 6.2 (4.5-12.0) X10-3/uL RBC 3.40 L (4.30-5.75) x10(6)uL Hgb 11.1 L D (11.5-15.5) g/dL Hct 32.5 D (30.0-51.3) % MCV 95.6 (80-96) fL MCH 32.5 (27.7-33.6) pg MCHC 34.1 (32.2-35.4) g/dL RDW 14.4 (11.5-15.5) % Plt Count 115 L (125-369) X10(3)uL PT (8.7-11.1) INR (0.89-1.13) D-Dimer, Quantitative 338 (100-400) ng/mL Sodium 140 (135-145) mmol/L Potassium 4.0 (3.5-5.3) mmol/L Chloride 107 (100-110) mmol/L Carbon Dioxide 25 (21-32) mmol/L BUN 16 (7-18) mg/dL Creatinine 0.9 (0.70-1.30) mg/dL Est Cr Clr Drug Dosing TNP Estimated GFR (MDRD) > 60 (>60) BUN/Creatinine Ratio 17.8 (9-20) Glucose 127 H (80-116) mg/dL Calcium 8.8 (8.6-10.2) mg/dL Total Bilirubin 1.4 H (0.1-1.3) mg/dL AST 89 H (5-25) IU/L ALT 74 H (12-36) U/L Alkaline Phosphatase 138 H (56-112) IU/L Troponin I (<0.017-0.056) ng/mL NT-Pro-B Natriuret Pep (<=125) pg/mL Total Protein 6.9 (6.0-8.0) g/dL Albumin 2.5 L (3.2-4.6) g/dL Globulin 4.4 g/dL Albumin/Globulin Ratio 0.6 12/19/17 12/19/17 Range/Units 17:45 17:45 WBC (4.5-12.0) X10-3/uL RBC (4.30-5.75) x10(6)uL Hgb (11.5-15.5) g/dL Hct (30.0-51.3) % MCV (80-96) fL MCH (27.7-33.6) pg MCHC (32.2-35.4) g/dL RDW (11.5-15.5) % Plt Count (125-369) X10(3)uL PT 14.0 H (8.7-11.1) INR 1.38 H (0.89-1.13) D-Dimer, Quantitative (100-400) ng/mL Sodium (135-145) mmol/L Potassium (3.5-5.3) mmol/L Chloride (100-110) mmol/L Carbon Dioxide (21-32) mmol/L BUN (7-18) mg/dL Creatinine (0.70-1.30) mg/dL Est Cr Clr Drug Dosing Estimated GFR (MDRD) (>60) BUN/Creatinine Ratio (9-20) Glucose (80-116) mg/dL Calcium (8.6-10.2) mg/dL Total Bilirubin (0.1-1.3) mg/dL AST (5-25) IU/L ALT (12-36) U/L Alkaline Phosphatase (56-112) IU/L Troponin I < 0.017 L (<0.017-0.056) ng/mL NT-Pro-B Natriuret Pep 365 H (<=125) pg/mL Total Protein (6.0-8.0) g/dL Albumin (3.2-4.6) g/dL Globulin g/dL Albumin/Globulin Ratio Meds: Medications Generic Name Dose Route Start Last Admin Trade Name Freq PRN Reason Stop Dose Admin Sodium Chloride 10 ml 12/19/17 17:47 12/19/17 19:00 Saline Flush FLUSH 10 ml ASDIRECTED PRN Administration Keep Vein Open Discontinued Medications Generic Name Dose Route Start Last Admin Trade Name Freq PRN Reason Stop Dose Admin Furosemide 40 mg 12/19/17 18:43 12/19/17 18:55 Lasix IVPUSH 12/19/17 18:44 40 mg NOW ONE Administration Spironolactone 50 mg 12/19/17 18:47 12/19/17 18:55 Aldactone PO 12/19/17 18:48 50 mg ONETIME ONE Administration - Radiology Interpretation Free Text/Narrative:: CXR-fluid overload Departure - Departure Time of Disposition: 20:20 Disposition: Home, Self-Care 01 Condition: Fair Clinical Impression: Chronic atrial fibrillation Fluid overload Qualifiers: Hypervolemia type: unspecified Qualified Code(s): E87.70 - Fluid overload, unspecified Ascites Qualifiers: Ascites type: due to alcoholic cirrhosis Qualified Code(s): K70.31 - Alcoholic cirrhosis of liver with ascites Referrals: Stan Hughes MD [Primary Care Provider] - Forms: ED Department Discharge - My Orders Last 24 Hours: My Active Orders 12/19/17 17:46 Cardiac Monitoring [RC] .As Directed 12/19/17 17:47 EKG Documentation Completion [RC] ASDIRECTED Oxygen Therapy NICU [Oxygen Therapy, ED] [RC] ASDIRECTED Sodium Chloride 0.9% [Saline Flush] 10 ml FLUSH ASDIRECTED PRN Saline Lock Insert [OM.PC] Routine EKG 12 Lead [EK] Routine 12/19/17 17:48 UA W/MICROSCOPIC [URIN] Stat 12/19/17 17:49 Chest 1V Frontal [CR] Stat - Assessment/Plan Last 24 Hours: My Active Orders 12/19/17 17:46 Cardiac Monitoring [RC] .As Directed 12/19/17 17:47 EKG Documentation Completion [RC] ASDIRECTED Oxygen Therapy NICU [Oxygen Therapy, ED] [RC] ASDIRECTED Sodium Chloride 0.9% [Saline Flush] 10 ml FLUSH ASDIRECTED PRN Saline Lock Insert [OM.PC] Routine EKG 12 Lead [EK] Routine 12/19/17 17:48 UA W/MICROSCOPIC [URIN] Stat 12/19/17 17:49 Chest 1V Frontal [CR] Stat
[2017-12-19] MEDS ORDERED: Furosemide 40 MG/4 ML VIAL IVPUSH ONE (18:43)
[2017-12-19] MEDS ORDERED: Spironolactone 50 MG Tab PO ONE (18:47)
[2017-12-19 19:33] VITALS: BP 139/69
--- NOTE | 2017-12-20 14:08 | CR ---
INDICATION: Short of breath. CHEST: AP upright view of the chest, 12/19/2017, was compared with 10/01/2017 and 09/24/2017, again revealing evidence of exogenous obesity. Two images were obtained on the current study. There is blunting of the costophrenic angle on the left, with suggestion of infiltration. Findings may be on the basis of pneumonia and pleuritis. The heart is enlarged. Pulmonary vasculature in the upper lung enciso is prominent. Interstitial changes are present, all suggesting CHF with interstitial lung edema. A minimal amount of alveolar lung edema - acute pulmonary edema - may also be present, with an appearance of minimal alveolar infiltration centrally on the right. Somewhat heavy markings are noted on the right, likely fibrotic in nature. They appear slightly more prominent than on the previous study, raising question of patchy pneumonia and/or pulmonary edema superimposed on fibrosis. IMPRESSION: 1. ASHD with cardiomegaly, CHF, and interstitial lung edema, possibly acute pulmonary edema. 2. Pleuroparenchymal changes left lung base may be on the basis of pneumonia and pleuritis. Also cannot exclude patchy pneumonia in the right mid lung field and lower lung field where minimal alveolar infiltration appears to be present. MTDD
== END 2017-12-19 20:30 | disposition home or self-care (01) ==
LOC: FB.ED 17:31
DX: I48.2 Chronic atrial fibrillation (principal); K70.31 Alcoholic cirrhosis of liver with ascites; E87.70 Fluid overload, unspecified; E11.9 Type 2 diabetes mellitus without complications; Z88.5 Allergy status to narcotic agent; Z79.899 Other long term (current) drug therapy; Z87.891 Personal history of nicotine dependence
CPT/HCPCS: 71045; 80053; 83880; 84484; 85027; 85379; 85610; 93005; 96374; 99285; A9270; J1940; J7050

== ENCOUNTER 2018-07-18 17:00 | Emergency (ER) | payer MEDICARE ==
--- NOTE | 2018-07-18 17:25 | EDM.PDOC ---
ED HPI GENERAL MEDICAL PROBLEM - General Chief Complaint: Back Pain or Injury Stated Complaint: BACK PAIN Time Seen by Provider: 07/18/18 17:10 Source of Information: Reports: Patient History Limitations: Reports: No Limitations - History of Present Illness INITIAL COMMENTS - FREE TEXT/NARRATIVE: Marlo comes into [facility] ED with an exacerbation of chronic back pain this evening. There are no long tract sxs. He has had issues with low back pain for decades following a work related injury. He has had treatment with a DC recently and things seem worse. He has not consulted with a physician regarding the nature or managment of this condition. His PCP is Dr. Hughes. - Related Data Allergies Allergy/AdvReac Type Severity Reaction Status Date / Time hydrocodone [From Vicodin] Allergy Itching Verified 06/15/18 23:05 hydrocodone bitartrate Allergy Itching Verified 06/15/18 23:05 [From Vicodin] Home Meds: Home Meds Carvedilol 12.5 mg PO BID 12/19/17 [History] DULoxetine HCl [Duloxetine HCl] 60 mg PO DAILY 12/19/17 [History] Diltiazem HCl [Cartia Xt] 120 mg PO DAILY 12/19/17 [History] Naltrexone 50 mg PO DAILY 12/19/17 [History] Ranitidine [Zantac] 75 mg PO BEDTIME 12/19/17 [History] Spironolactone [Aldactone] 25 mg PO BID #30 tab 12/19/17 [Rx] Aspirin [Halfprin] 81 mg PO DAILY 02/13/18 [History] Cyanocobalamin (Vitamin B-12) [Vitamin B-12] 250 mcg PO DAILY 02/13/18 [History] Dabigatran [Pradaxa] 150 mg PO BID 02/13/18 [History] Folic Acid 1 mg PO DAILY 02/13/18 [History] Furosemide [Lasix] 40 mg PO BID 02/13/18 [History] Insulin Glarg,Human.Rec.Analog [Lantus Solostar] 28 unit SUBCUT BEDTIME [History] Thiamine [Vitamin B-1] 100 mg PO DAILY 02/13/18 [History] Past Medical History HEENT History: Reports: Epistaxis Cardiovascular History: Reports: Arrhythmia, Blood Clots/VTE/DVT, Hypertension Other Cardiovascular History: son states that patient is having an enlarged heart, has irreg HR. Stopped taking BP meds, 'I don't like taking medications. Respiratory History: Reports: Asthma Other Respiratory History: Hx of broken ribs Gastrointestinal History: Reports: Cholelithiasis, Cirrhosis, GERD Other Gastrointestinal History: alcoholic cirrhosis Genitourinary History: Reports: Prostate Disorder Musculoskeletal History: Reports: Arthritis, Back Pain, Chronic, Fracture Other Musculoskeletal History: 3 R fx ribs, fx back, fx L foot Neurological History: Reports: Concussion, CVA Psychiatric History: Reports: Addiction, Anxiety, Depression, Other (See Below) Other Psychiatric History: Recent hospitalizations related to alcohol use. States was in tx x 1 in past. Endocrine/Metabolic History: Reports: Diabetes, Type II, Obesity/BMI 30+ Dermatologic History: Reports: Psoriasis, Other (See Below) Other Dermatologic History: psoriasis - Infectious Disease History Infectious Disease History: Reports: Other (See Below) Other Infectious Disease History: unknown, can't remember. - Past Surgical History HEENT Surgical History: Reports: None GI Surgical History: Reports: Cholecystectomy, Hernia, Abdominal, Other (See Below) Other GI Surgeries/Procedures: needed to have mesh removed from abdomen due to infection. Neurological Surgical History: Reports: None Musculoskeletal Surgical History: Reports: Arthroscopic Knee, ORIF Other Musculoskeletal Surgeries/Procedures:: bilat knee scopes, L foot surgery Social & Family History - Family History Family Medical History: Noncontributory HEENT: Reports: Macular Degeneration Cardiac: Reports: Hypertension, [place], Other (See Below) Other Cardiac Family History: filter in vein Respiratory: Reports: None GI: Reports: PUD OBGYN: Reports: Musculoskeletal: Reports: Arthritis Neurological: Reports: Alzheimers Disease, CVA Psychiatric: Reports: Bipolar, Depression Endocrine/Metabolic: Reports: None Oncologic: Reports: Other (See Below) Other Oncologic Family History: non specific comments about family - Caffeine Use Caffeine Use: Reports: None - Living Situation & Occupation Living situation: Reports: Occupation: Other ED ROS GENERAL - Review of Systems Review Of Systems: ROS reveals no pertinent complaints other than HPI. ED EXAM,LOWER BACK PAIN/INJURY - Physical Exam Exam: See Below Exam Limited By: No Limitations General Appearance: Alert, WD/WN, Mild Distress, Obese Head: Normocephalic Neck: Normal Inspection, Supple, Non-Tender Respiratory/Chest: Lungs Clear Cardiovascular: Regular Rate, Rhythm GI/Abdominal: Normal Bowel Sounds, Soft, Non-Tender, No Organomegaly, No Distention, No Mass (Male) Exam: Deferred Rectal (Males) Exam: Deferred Back Exam: Decreased Range of Motion, Vertebral Tenderness (L3-4-5) Extremities: Pedal Edema Neurological: Alert, Normal Mood/Affect, CN II-XII Intact, Normal Plantar Flexion, Oriented x 3 Psychiatric: Normal Affect, Flat Affect Skin Exam: Warm, Dry, Intact Lymphatic: No Adenopathy Course - Vital Signs Text/Narrative:: Folowing assessment at the [facility] ED, I administered Toradol 60 mg IM. Patient tolerated well. - Orders/Labs/Meds Meds: Medications Discontinued Medications Generic Name Dose Route Start Last Admin Trade Name Ceasar PRN Reason Stop Dose Admin Ketorolac Tromethamine 60 mg 07/18/18 17:24 Toradol IM 07/18/18 17:25 ONETIME ONE Departure - Departure Time of Disposition: 18:30 Disposition: Home, Self-Care 01 Condition: Fair Clinical Impression: Acute exacerbation of chronic low back pain - Discharge Information *PRESCRIPTION DRUG MONITORING PROGRAM REVIEWED*: Not Applicable *COPY OF PRESCRIPTION DRUG MONITORING REPORT IN PATIENT CHRISTOS: Not Applicable Instructions: Ketorolac injection, Back Pain, Adult Forms: ED Department Discharge - Problem List & Annotations (1) Acute exacerbation of chronic low back pain SNOMED Code(s): 570802522 Code(s): M54.5 - LOW BACK PAIN; G89.29 - OTHER CHRONIC PAIN Status: Acute Current Visit: Yes Annotation/Comment:: I suggested NSAIDs and follow up with PCP. - Problem List Review Problem List Initiated/Reviewed/Updated: Yes - Assessment/Plan Plan: Follow up with PCP.
[2018-07-18] MEDS: Ketorolac 60 MG/2 ML SDV IM ONE (17:31)
[2018-07-18 21:00] VITALS: BP 141/70
== END 2018-07-18 17:56 | disposition home or self-care (01) ==
LOC: FB.ED 17:00
DX: G89.29 Other chronic pain (principal); M54.5 Low back pain; I10 Essential (primary) hypertension; E11.9 Type 2 diabetes mellitus without complications; E66.9 Obesity, unspecified; Z88.8 Allergy status to other drugs, medicaments and biological substances; Z79.899 Other long term (current) drug therapy; Z79.82 Long term (current) use of aspirin
CPT/HCPCS: 96372; 99283; J1885

== ENCOUNTER 2018-11-26 11:05 | Emergency (ER) | payer MEDICARE ==
--- NOTE | 2018-11-26 11:18 | EDM.PDOCBH ---
ED HPI GENERAL MEDICAL PROBLEM - General Chief Complaint: Drug or Alcohol Abuse Stated Complaint: DETOXING Time Seen by Provider: 11/26/18 11:05 Source of Information: Reports: Patient, EMS History Limitations: Reports: Intoxication - History of Present Illness INITIAL COMMENTS - FREE TEXT/NARRATIVE: 63 y.o.w.m with a h/o chronic ETOH abuse, unkempt, came to the ed by EMS after he was bench drinking for 3 weeks. Last ETOH intake was at 8 am today. Pt is not able to ambulate without help. He lives with his , who is not present. Pt his has an asteric fine peripheral tremor, requesting to be transferred to detox where he some time before. No chest pain no SOB. He has a fractured left wrist for which he was seen by Ortho 4 weeks ago, as pint i in place. no other acute medical issues. BP 179/79 Pulse 104 Temp 36.8 RR 20 Pulse ox 98% on RA Onset Date: 11/01/18 Onset Time: 09:00 Duration: Day(s):, Week(s):, Getting Worse Location: Reports: Generalized Quality: Reports: Same as Previous Episode, Other (shakiness) Severity: Moderate Improves with: Reports: Other (rinking ETOH) Worsens with: Reports: Other (no drinking) Context: Reports: Other (etoh abuse for 3 weeks, last ETOH 8 am today) Associated Symptoms: Reports: Confusion, Weakness Left wrist Pain Score (Numeric/FACES): 8 - Related Data Allergies Allergy/AdvReac Type Severity Reaction Status Date / Time hydrocodone [From Vicodin] Allergy Itching Verified 11/26/18 11:22 hydrocodone bitartrate Allergy Itching Verified 11/26/18 11:22 [From Vicodin] Home Meds: Home Meds Carvedilol 12.5 mg PO BID 12/19/17 [History] DULoxetine HCl [Duloxetine HCl] 60 mg PO DAILY 12/19/17 [History] Diltiazem HCl [Cartia Xt] 120 mg PO DAILY 12/19/17 [History] Naltrexone 50 mg PO DAILY 12/19/17 [History] Ranitidine [Zantac] 75 mg PO BEDTIME 12/19/17 [History] Spironolactone [Aldactone] 25 mg PO BID #30 tab 12/19/17 [Rx] Aspirin [Halfprin] 81 mg PO DAILY 02/13/18 [History] Cyanocobalamin (Vitamin B-12) [Vitamin B-12] 250 mcg PO DAILY 02/13/18 [History] Dabigatran [Pradaxa] 150 mg PO BID 02/13/18 [History] Folic Acid 1 mg PO DAILY 02/13/18 [History] Furosemide [Lasix] 40 mg PO BID 02/13/18 [History] Insulin Glarg,Human.Rec.Analog [Lantus Solostar] 28 unit SUBCUT BEDTIME [History] Thiamine [Vitamin B-1] 100 mg PO DAILY 02/13/18 [History] .Magnesium 1 tab PO ASDIRECTED 09/20/18 [History] Past Medical History HEENT History: Reports: Epistaxis Cardiovascular History: Reports: Arrhythmia, Blood Clots/VTE/DVT, Hypertension Other Cardiovascular History: son states that patient is having an enlarged heart, has irreg HR. Stopped taking BP meds, 'I don't like taking medications. Respiratory History: Reports: Asthma Other Respiratory History: Hx of broken ribs Gastrointestinal History: Reports: Cholelithiasis, Cirrhosis, GERD Other Gastrointestinal History: alcoholic cirrhosis Genitourinary History: Reports: Prostate Disorder Musculoskeletal History: Reports: Arthritis, Back Pain, Chronic, Fracture Other Musculoskeletal History: 3 R fx ribs, fx back, fx L foot Neurological History: Reports: Concussion, CVA Psychiatric History: Reports: Addiction, Anxiety, Depression, Other (See Below) Other Psychiatric History: Recent hospitalizations related to alcohol use. States was in tx x 1 in past. Endocrine/Metabolic History: Reports: Diabetes, Type II, Obesity/BMI 30+ Dermatologic History: Reports: Psoriasis, Other (See Below) Other Dermatologic History: psoriasis - Infectious Disease History Infectious Disease History: Reports: Other (See Below) Other Infectious Disease History: unknown, can't remember. - Past Surgical History HEENT Surgical History: Reports: None GI Surgical History: Reports: Cholecystectomy, Hernia, Abdominal, Other (See Below) Other GI Surgeries/Procedures: needed to have mesh removed from abdomen due to infection. Neurological Surgical History: Reports: None Musculoskeletal Surgical History: Reports: Arthroscopic Knee, ORIF Other Musculoskeletal Surgeries/Procedures:: bilat knee scopes, L foot surgery Social & Family History - Family History Family Medical History: Noncontributory HEENT: Reports: Macular Degeneration Cardiac: Reports: Hypertension, MA, Other (See Below) Other Cardiac Family History: filter in vein Respiratory: Reports: None GI: Reports: PUD OBGYN: Reports: Musculoskeletal: Reports: Arthritis Neurological: Reports: Alzheimers Disease, CVA Psychiatric: Reports: Bipolar, Depression Endocrine/Metabolic: Reports: None Oncologic: Reports: Other (See Below) Other Oncologic Family History: non specific comments about family - Caffeine Use Caffeine Use: Reports: None - Living Situation & Occupation Living situation: Reports: Occupation: Other ED ROS GENERAL - Review of Systems Review Of Systems: Unable To Obtain ED EXAM, BEHAVIORAL HEALTH - Physical Exam Exam: See Below Exam Limited By: Intoxication General Appearance: Alert, Moderate Distress, Obese Eye Exam: Bilateral Eye: Normal Inspection Ears: Normal External Exam Nose: Normal Inspection Throat/Mouth: Normal Lips, Normal Voice, No Airway Compromise, Other (poor dentition) Head: Atraumatic, Normocephalic Neck: Normal Inspection, Supple Respiratory/Chest: No Respiratory Distress, Lungs Clear (poor inspiratory effort ), Normal Breath Sounds Cardiovascular: Normal Peripheral Pulses, No Edema, Tachycardia GI/Abdominal: Normal Bowel Sounds, Soft, Non-Tender, No Organomegaly, No Abnormal Bruit, No Mass, Pelvis Stable (Male) Exam: No Hernia Rectal (Males) Exam: Deferred Back Exam: Normal Inspection, Full Range of Motion Extremities: Normal Inspection, Normal Range of Motion, Non-Tender Neurological: Alert, CN II-XII Intact, Oriented x 3, Abnormal Romberg (unsteady gate), Tremor Psychiatric: Depressed Mood Skin Exam: Warm, Dry, Other (unkempt with tinea generalis) EKG INTERPRETATION EKG Date: 11/26/18 Time: 11:20 Rhythm: NSR Rate (Beats/Min): 93 [place]: Normal P-Wave: Present QRS: Normal ST-T: Normal QT: Normal Comparison: NA - No Prior EKG COURSE, BEHAVIORAL HEALTH COMP - Course Vital Signs: Last Vital Signs Temp 36.1 C 11/26/18 11:15 Pulse 107 H 11/26/18 13:35 Resp 20 11/26/18 11:15 BP 172/108 H 11/26/18 13:45 Pulse Ox 98 11/26/18 11:15 63 y.o.w.m with a h/o chronic ETOH abuse, unkempt, came to the ed by EMS after he was bench drinking for 3 weeks. Last ETOH intake was at 8 am today. Pt is not able to ambulate without help. He lives with his , who is not present. Pt his has an asteric fine peripheral tremor, requesting to be transferred to detox where he some time before. No chest pain no SOB. He has a fractured left wrist for which he was seen by Ortho 4 weeks ago, as pint i in place. no other acute medical issues. BP 179/79 Pulse 104 Temp 36.8 RR 20 Pulse ox 98% on RA PE: Unkempt, weak 63 y.o.w.m with ETOH abuse, unsteady gate and a left wrist fracture (4 weeks old) Imaging: Not indicated Labs: CBC pos for MCW 99.4 Plts 74K BMP pos for K 3.2 Mg 0.9 Ca 8.4 ETOH 0.03 UDS was neg Impression: Hypokalemia, hypomagnesia, HTN, ETOH abuse, ETOH abuse last ETOH at 8 am. Low platelets Tx: Mg, potassium, NS. Thiamin, Folic acid, Clonidin Reexam: improved, can walk with assistance Plan: Transfer to [facility] by EMS Orders, Labs, Meds: Active Orders 24 hr Category Date Time Status Sodium Chloride 0.9% [Normal Saline] 1,000 ml Med 11/26/18 11:30 Active IV ASDIRECTED Sodium Chloride 0.9% [Saline Flush] Med 11/26/18 11:20 Active 10 ml FLUSH ASDIRECTED PRN Peripheral IV Insertion Adult [OM.PC] Routine Oth 11/26/18 11:20 Ordered EKG 12 Lead [EK] Routine Ther 11/26/18 11:20 Ordered Medication Orders Sodium Chloride (Normal Saline) 1,000 mls @ 125 mls/hr IV ASDIRECTED ADRIAN Last Admin: 11/26/18 11:46 Dose: 125 mls/hr Sodium Chloride (Saline Flush) 10 ml FLUSH ASDIRECTED PRN PRN Reason: Keep Vein Open Last Admin: 11/26/18 11:43 Dose: 10 ml Laboratory Tests 11/26/18 11/26/18 11/26/18 Range/Units 11:40 11:40 11:40 WBC 5.7 (4.5-12.0) X10-3/uL RBC 4.22 L (4.30-5.75) x10(6)uL Hgb 14.1 (11.5-15.5) g/dL Hct 42.0 (30.0-51.3) % MCV 99.4 H (80-96) fL MCH 33.4 (27.7-33.6) pg MCHC 33.6 (32.2-35.4) g/dL RDW 14.8 (11.5-15.5) % Plt Count 74 L (125-369) X10(3)uL MPV 9.7 (7.4-10.4) fL Neut % (Auto) 76.9 (46-82) % Lymph % (Auto) 14.7 (13-37) % [place] % (Auto) 7.6 (4-12) % Eos % (Auto) 0 L (1.0-5.0) % Baso % (Auto) 1 (0-2) % Neut # (Auto) 4.5 (1.6-8.3) # Lymph # (Auto) 0.8 (0.6-5.0) # [place] # (Auto) 0.4 (0.0-1.3) # Eos # (Auto) 0.0 (0.0-0.8) # Baso # (Auto) 0.0 (0.0-0.2) # Sodium 138 (135-145) mmol/L Potassium 3.2 L (3.5-5.3) mmol/L Chloride 99 L (100-110) mmol/L Carbon Dioxide 27 (21-32) mmol/L BUN 8 (7-18) mg/dL Creatinine 0.8 (0.70-1.30) mg/dL Est Cr Clr Drug Dosing 103.74 mL/min Estimated GFR (MDRD) > 60 (>60) BUN/Creatinine Ratio 10.0 (9-20) Glucose 200 H (80-116) mg/dL Calcium 8.4 L (8.6-10.2) mg/dL Magnesium (1.8-2.5) mg/dL Troponin I < 0.017 L (<0.017-0.056) ng/mL Urine Opiates Screen (NEGATIVE) Ur Oxycodone Screen (NEGATIVE) Ur Propoxyphene Screen (NEGATIVE) Ur Barbituates Screen (NEGATIVE) Ur Tricyclics Screen (NEGATIVE) Ur Phencyclidine Scrn (NEGATIVE) Ur Amphetamine Screen (NEGATIVE) Urine MDMA Screen (NEGATIVE) U Benzodiazepines Scrn (NEGATIVE) U Cocaine Metab Screen (NEGATIVE) U Marijuana (THC) Screen (NEGATIVE) Ethyl Alcohol < 0.03 (<0.03) % 11/26/18 11/26/18 Range/Units 11:40 12:10 WBC (4.5-12.0) X10-3/uL RBC (4.30-5.75) x10(6)uL Hgb (11.5-15.5) g/dL Hct (30.0-51.3) % MCV (80-96) fL MCH (27.7-33.6) pg MCHC (32.2-35.4) g/dL RDW (11.5-15.5) % Plt Count (125-369) X10(3)uL MPV (7.4-10.4) fL Neut % (Auto) (46-82) % Lymph % (Auto) (13-37) % [place] % (Auto) (4-12) % Eos % (Auto) (1.0-5.0) % Baso % (Auto) (0-2) % Neut # (Auto) (1.6-8.3) # Lymph # (Auto) (0.6-5.0) # [place] # (Auto) (0.0-1.3) # Eos # (Auto) (0.0-0.8) # Baso # (Auto) (0.0-0.2) # Sodium (135-145) mmol/L Potassium (3.5-5.3) mmol/L Chloride (100-110) mmol/L Carbon Dioxide (21-32) mmol/L BUN (7-18) mg/dL Creatinine (0.70-1.30) mg/dL Est Cr Clr Drug Dosing mL/min Estimated GFR (MDRD) (>60) BUN/Creatinine Ratio (9-20) Glucose (80-116) mg/dL Calcium (8.6-10.2) mg/dL Magnesium 0.9 L* (1.8-2.5) mg/dL Troponin I (<0.017-0.056) ng/mL Urine Opiates Screen Negative (NEGATIVE) Ur Oxycodone Screen Negative (NEGATIVE) Ur Propoxyphene Screen Negative (NEGATIVE) Ur Barbituates Screen Negative (NEGATIVE) Ur Tricyclics Screen Negative (NEGATIVE) Ur Phencyclidine Scrn Negative (NEGATIVE) Ur Amphetamine Screen Negative (NEGATIVE) Urine MDMA Screen Negative (NEGATIVE) U Benzodiazepines Scrn Negative (NEGATIVE) U Cocaine Metab Screen Negative (NEGATIVE) U Marijuana (THC) Screen Negative (NEGATIVE) Ethyl Alcohol (<0.03) % Medications Generic Name Dose Route Start Last Admin Trade Name Freq PRN Reason Stop Dose Admin Sodium Chloride 1,000 mls @ 125 mls/hr 11/26/18 11:30 11/26/18 11:46 Normal Saline IV 125 mls/hr ASDIRECTED ADRIAN Administration Sodium Chloride 10 ml 11/26/18 11:20 11/26/18 11:43 Saline Flush FLUSH 10 ml ASDIRECTED PRN Administration Keep Vein Open Discontinued Medications Generic Name Dose Route Start Last Admin Trade Name Freq PRN Reason Stop Dose Admin Clonidine HCl 0.1 mg 11/26/18 13:41 11/26/18 13:45 Catapres PO 11/26/18 13:42 0.1 mg ONETIME ONE Administration Folic Acid 1 mg 11/26/18 11:20 11/26/18 12:02 Folic Acid PO 11/26/18 11:21 1 mg ONETIME ONE Administration Thiamine HCl 100 mg/ Sodium 101 mls @ 202 mls/hr 11/26/18 11:20 11/26/18 12: 02 Chloride IV 11/26/18 11:21 202 mls/hr ONETIME ONE Administration Magnesium Sulfate 2 gm/ Premix 50 mls @ 150 mls/hr 11/26/18 13:03 11/26/18 13 :10 IV 11/26/18 13:22 75 mls/hr ONETIME ONE Infusion Lorazepam 1 mg 11/26/18 11:20 11/26/18 12:01 Ativan IVPUSH 11/26/18 11:21 1 mg ONETIME ONE Administration Potassium Chloride 20 meq 11/26/18 12:33 11/26/18 12:36 Klor-Con M20 PO 11/26/18 12:34 20 meq ONETIME ONE Administration Departure - Departure Time of Disposition: 14:12 Disposition: Home, Self-Care 01 Condition: Fair Clinical Impression: ETOH abuse, Hypomagnesemia, Hypokalemia, Hypertension - Discharge Information Referrals: Stan Hughes MD [Primary Care Provider] - Forms: ED Department Discharge - My Orders Last 24 Hours: My Active Orders 11/26/18 11:20 Sodium Chloride 0.9% [Saline Flush] 10 ml FLUSH ASDIRECTED PRN Peripheral IV Insertion Adult [OM.PC] Routine EKG 12 Lead [EK] Routine 11/26/18 11:30 Sodium Chloride 0.9% [Normal Saline] 1,000 ml IV ASDIRECTED - Assessment/Plan Last 24 Hours: My Active Orders 11/26/18 11:20 Sodium Chloride 0.9% [Saline Flush] 10 ml FLUSH ASDIRECTED PRN Peripheral IV Insertion Adult [OM.PC] Routine EKG 12 Lead [EK] Routine 11/26/18 11:30 Sodium Chloride 0.9% [Normal Saline] 1,000 ml IV ASDIRECTED
[2018-11-26] MEDS ORDERED: Thiamine 100 MG in Sodium Chloride 0.9% 100 ML IV ONE (11:20)
[2018-11-26] MEDS ORDERED: LORazepam 2 MG/ML SDV IVPUSH ONE (11:20)
[2018-11-26] MEDS ORDERED: Sodium Chloride 0.9% 10 ML Syringe FLUSH PRN (11:20)
[2018-11-26] MEDS ORDERED: Folic Acid 1 MG Tab PO ONE (11:20)
[2018-11-26] MEDS ORDERED: Sodium Chloride 0.9% 1,000 ML IV SCH (11:30)
[2018-11-26] MEDS ORDERED: Potassium Chloride 20 MEQ Tab.ER PO ONE (12:33)
[2018-11-26] MEDS ORDERED: Magnesium Sulfate/Water 2 GM in Premix Bag 1 BAG IV ONE (13:03)
[2018-11-26] MEDS ORDERED: cloNIDine 0.1 MG Tab PO ONE (13:41)
[2018-11-26 14:32] VITALS: BP 155/92
== END 2018-11-26 15:06 ==
LOC: FB.ED 11:05
DX: E87.6 Hypokalemia (principal); E83.42 Hypomagnesemia; F10.129 Alcohol abuse with intoxication, unspecified; Y90.0 Blood alcohol level of less than 20 mg/100 ml; I10 Essential (primary) hypertension; E11.9 Type 2 diabetes mellitus without complications; E66.9 Obesity, unspecified; Z88.8 Allergy status to other drugs, medicaments and biological substances; Z79.899 Other long term (current) drug therapy
CPT/HCPCS: 36415; 80048; 80305; 83735; 84484; 85025; 93005; 96361; 96365; 96367; 96375; 99285; A9270; G0480; J2060; J3411; J3475; J7030

== ENCOUNTER 2019-03-03 12:19 | Emergency (ER) | payer MEDICAID, MEDICARE ==
[2019-03-03] MEDS ORDERED: LORazepam 2 MG/ML SDV ONE ×2 (12:24→12:37)
[2019-03-03] MEDS ORDERED: Insulin Regular, Human 100 Units/ML 3 ML Vial IV STA (12:28)
[2019-03-03] MEDS ORDERED: Insulin Regular, Human 100 Units/ML 3 ML Vial ONE (12:29)
[2019-03-03] MEDS ORDERED: Sodium Chloride 0.9% 1,000 ML IV ONE (12:30)
[2019-03-03] MEDS ORDERED: Insulin Regular, Human 100 Units/ML 3 ML Vial IV ONE ×2 (12:30→12:50)
[2019-03-03] MEDS ORDERED: LORazepam 2 MG/ML SDV IVPUSH STA (12:34)
--- NOTE | 2019-03-03 12:42 | EDM.PDOC ---
ED HPI GENERAL MEDICAL PROBLEM - General Stated Complaint: hi bl sug Time Seen by Provider: 03/03/19 12:41 Source of Information: Reports: Patient, EMS History Limitations: Reports: Altered Mental Status - History of Present Illness INITIAL COMMENTS - FREE TEXT/NARRATIVE: 63 y.o.w.m with a H/O IDDM and HTN, came to the ed by EMS. Pt was slammed over to ethe left side and was not responding. Accu was >600, gave him NovoLog. No response, called 911. EMS arrived, BP was 256/154 accu check was > 600. On arrival, pt was not responding to verbal stimuli but pain, Pupils were fixed and his gaze was to the left. Pt had a tonic clonic Seizures as well, more so on his left side. I2 IV were started, Intubation was prepared, total of 2 mg Ativan were given, 20 Units of Reg Insulin, Labetalol 10 mg were given. No GAG, Seizure subsided prior to the intubation. Pt was intubated using Succ and propofol (by the Tech) Vitals: BP 124/87 Pulse 126 in a fib O2 sat 96% CO2 41. Onset Date: 03/03/19 Onset Time: 12:20 Duration: Hour(s): Location: Reports: Head, Generalized Severity: Moderate Improves with: Reports: Medication Worsens with: Reports: Other Context: Reports: Other (HTN, GLC up Seizure) - Related Data Allergies Allergy/AdvReac Type Severity Reaction Status Date / Time hydrocodone [From Vicodin] Allergy Itching Verified 11/26/18 11:22 hydrocodone bitartrate Allergy Itching Verified 11/26/18 11:22 [From Vicodin] Home Meds: Home Meds Carvedilol 12.5 mg PO BID 12/19/17 [History] DULoxetine HCl [Duloxetine HCl] 60 mg PO DAILY 12/19/17 [History] Diltiazem HCl [Cartia Xt] 120 mg PO DAILY 12/19/17 [History] Naltrexone 50 mg PO DAILY 12/19/17 [History] Ranitidine [Zantac] 75 mg PO BEDTIME 12/19/17 [History] Spironolactone [Aldactone] 25 mg PO BID #30 tab 12/19/17 [Rx] Aspirin [Halfprin] 81 mg PO DAILY 02/13/18 [History] Cyanocobalamin (Vitamin B-12) [Vitamin B-12] 250 mcg PO DAILY 02/13/18 [History] Dabigatran [Pradaxa] 150 mg PO BID 02/13/18 [History] Folic Acid 1 mg PO DAILY 02/13/18 [History] Furosemide [Lasix] 40 mg PO BID 02/13/18 [History] Insulin Glarg,Human.Rec.Analog [Lantus Solostar] 28 unit SUBCUT BEDTIME [History] Thiamine [Vitamin B-1] 100 mg PO DAILY 02/13/18 [History] .Magnesium 1 tab PO ASDIRECTED 09/20/18 [History] Past Medical History HEENT History: Reports: Epistaxis Cardiovascular History: Reports: Arrhythmia, Blood Clots/VTE/DVT, Hypertension Other Cardiovascular History: son states that patient is having an enlarged heart, has irreg HR. Stopped taking BP meds, 'I don't like taking medications. Respiratory History: Reports: Asthma Other Respiratory History: Hx of broken ribs Gastrointestinal History: Reports: Cholelithiasis, Cirrhosis, GERD Other Gastrointestinal History: alcoholic cirrhosis Genitourinary History: Reports: Prostate Disorder Musculoskeletal History: Reports: Arthritis, Back Pain, Chronic, Fracture Other Musculoskeletal History: 3 R fx ribs, fx back, fx L foot Neurological History: Reports: Concussion, CVA Psychiatric History: Reports: Addiction, Anxiety, Depression, Other (See Below) Other Psychiatric History: Recent hospitalizations related to alcohol use. States was in tx x 1 in past. Endocrine/Metabolic History: Reports: Diabetes, Type II, Obesity/BMI 30+ Dermatologic History: Reports: Psoriasis, Other (See Below) Other Dermatologic History: psoriasis - Infectious Disease History Infectious Disease History: Reports: Other (See Below) Other Infectious Disease History: unknown, can't remember. - Past Surgical History HEENT Surgical History: Reports: None GI Surgical History: Reports: Cholecystectomy, Hernia, Abdominal, Other (See Below) Other GI Surgeries/Procedures: needed to have mesh removed from abdomen due to infection. Neurological Surgical History: Reports: None Musculoskeletal Surgical History: Reports: Arthroscopic Knee, ORIF Other Musculoskeletal Surgeries/Procedures:: bilat knee scopes, L foot surgery Social & Family History - Family History Family Medical History: Noncontributory HEENT: Reports: Macular Degeneration Cardiac: Reports: Hypertension, [place], Other (See Below) Other Cardiac Family History: filter in vein Respiratory: Reports: None GI: Reports: PUD OBGYN: Reports: Musculoskeletal: Reports: Arthritis Neurological: Reports: Alzheimers Disease, CVA Psychiatric: Reports: Bipolar, Depression Endocrine/Metabolic: Reports: None Oncologic: Reports: Other (See Below) Other Oncologic Family History: non specific comments about family - Caffeine Use Caffeine Use: Reports: None - Living Situation & Occupation Living situation: Reports: Occupation: Other ED ROS GENERAL - Review of Systems Review Of Systems: Unable To Obtain ED EXAM, NEURO - Physical Exam Exam: See Below Exam Limited By: Altered Mental Status General Appearance: Alert, WD/WN, Severe Distress Eye Exam: Bilateral Eye: Other (gaze to the left) Ears: Normal External Exam Nose: Normal Inspection Throat/Mouth: Normal Lips, Other (no GAG reflex) Head Exam: Atraumatic, Normocephalic Neck: Normal Inspection, Supple Respiratory/Chest: No Respiratory Distress, Lungs Clear, Normal Breath Sounds Cardiovascular: Normal Peripheral Pulses, No JVD, Tachycardia, Irregularly Irregular GI/Abdominal: Normal Bowel Sounds, Soft, Non-Tender, No Organomegaly (Male) Exam: Deferred Rectal (Males) Exam: Deferred Neurological: No Response to Pain, Other (DCS 8) Back Exam: Normal Inspection Extremities: Normal Inspection Psychiatric: Other Skin Exam: Warm, Dry, Intact, Normal Color, No Rash EKG INTERPRETATION EKG Date: 03/03/19 Time: 13:15 Rhythm: A-Fib Rate (Beats/Min): 113 [place]: Normal P-Wave: Absent QRS: Normal ST-T: Normal QT: Prolonged Comparison: NA - No Prior EKG Course - Vital Signs Text/Narrative:: 63 y.o.w.m with a H/O IDDM H/o ETOH abuse and HTN, came to the ed by EMS. Pt was slammed over to ethe left side and was not responding. Accu was >600, gave him NovoLog. No response, called 911. EMS arrived, BP was 256/154 accu check was > 600. On arrival, pt was not responding to verbal stimuli but pain, Pupils were fixed and his gaze was to the left. Pt had a tonic clonic Seizures as well, more so on his left side. I2 IV were started, Intubation was prepared, total of 2 mg Ativan were given, 20 Units of Reg Insulin, Labetalol 10 mg were given. No GAG, Seizure subsided prior to the intubation. As per , pt stopped drinking 3 months ago. Pt was intubated using Succ and propofol ( by the Tech) Vitals: BP 124/87 Pulse 126 in a fib O2 sat 100% CO2 41. PE: 63 y.o.w.m with TC Sz, HTN, gaze to the left no GAG, Intubated, on an insulin drip. Imaging: CT head: NAD as per RAD CXR post intubation: Cuffed tube 2" above the bifurcation Labs: CBC nl INR 1.15 Na 130 K 3.5 GFR > 60, elevated liver enzymes, Glc 687 ETOH level 0.03, Lactic acid 2.6 Impression: Intractable tonic clonic Seizures, Hypertensive emergency, IDDM with Hyperglycemia, Hyponatremia. H/O ETOH abuse. Tx: NS, Ativan, Reg insulin, Insulin drip, NS with K, Intubation, Vega cath, FIO2 changed to 50% 1.15 pm Consultation: Dr. Teresa, Service Person, [facility]: Agreed with Tx, accepted the pt for transfer and further care Reexam: Improved, BP 135/87 Pulse ox 98% Pulse 123 CO2 45 Plan: Transfer by EMS to [place], was present and informed about the Tx plan Last Recorded V/S: Last Vital Signs Temp 36.8 C 03/03/19 12:50 Pulse 152 H 03/03/19 12:50 Resp 23 H 03/03/19 12:50 BP 187/115 H 03/03/19 12:50 Pulse Ox 87 L 03/03/19 12:50 - Orders/Labs/Meds Orders: Active Orders 24 hr Category Date Time Status Accu Check [Blood Glucose Check, Bedside] [RC] ONETIME Care 03/03/19 12:30 Active Accu Check [Blood Glucose Check, Bedside] [RC] ONETIME Care 03/03/19 13:57 Active EKG Documentation Completion [RC] ASDIRECTED Care 03/03/19 12:24 Active Insert Vega Catheter [Insert Urinary Catheter] [OM.PC] Care 03/03/19 13:30 Ordered Q24H Urinary Catheter Assessment [RC] QSHIFT Care 03/03/19 17:01 Active Chest 1V Frontal [CR] Stat Exams 03/03/19 13:31 Taken Head wo Cont [CT] Stat Exams 03/03/19 12:23 Taken EKG 12 Lead [EK] Routine Ther 03/03/19 12:23 Ordered Labs: Laboratory Tests 03/03/19 03/03/19 03/03/19 Range/Units 12:27 12:27 12:27 WBC 8.5 (4.5-12.0) X10-3/uL RBC 4.84 (4.30-5.75) x10(6)uL Hgb 15.0 (13.5-17.8) g/dL Hct 44.7 (30.0-51.3) % MCV 92.4 (80-96) fL MCH 31.0 (27.7-33.6) pg MCHC 33.6 (32.2-35.4) g/dL RDW 13.6 (11.5-15.5) % Plt Count 192 (125-369) X10(3)uL MPV 8.8 (7.4-10.4) fL Neut % (Auto) 60.7 (46-82) % Lymph % (Auto) 27.4 (13-37) % Walsh % (Auto) 7.9 (4-12) % Eos % (Auto) 4 (1.0-5.0) % Baso % (Auto) 0 (0-2) % Neut # (Auto) 5.2 (1.6-8.3) # Lymph # (Auto) 2.3 (0.6-5.0) # Walsh # (Auto) 0.7 (0.0-1.3) # Eos # (Auto) 0.3 (0.0-0.8) # Baso # (Auto) 0.0 (0.0-0.2) # PT 11.3 H (8.7-11.1) INR 1.16 H (0.89-1.13) ABG pH (7.35-7.45) ABG pCO2 (35-45) mmHg ABG pO2 (83-108) mmHg ABG HCO3 (22-26) mmol/L ABG O2 Saturation (96-97) % ABG Base Excess (-2-2) Reza Test O2 Delivery Device Sodium 130 L (135-145) mmol/L Potassium 3.5 (3.5-5.3) mmol/L Chloride 95 L (100-110) mmol/L Carbon Dioxide 25 (21-32) mmol/L BUN 15 (7-18) mg/dL Creatinine 1.1 (0.70-1.30) mg/dL Est Cr Clr Drug Dosing TNP Estimated GFR (MDRD) > 60 (>60) BUN/Creatinine Ratio 13.6 (9-20) Glucose 687 H* D (80-116) mg/dL POC Glucose (80-116) mg/dL Lactic Acid (0.4-2.2) mmol/L Calcium 8.6 (8.6-10.2) mg/dL Magnesium (1.8-2.5) mg/dL Total Bilirubin 1.0 (0.1-1.3) mg/dL Direct Bilirubin 0.37 H (0.10-0.20) mg/dL AST 74 H D (5-25) IU/L ALT 61 H D (12-36) U/L Alkaline Phosphatase 380 H (56-112) IU/L Total Protein 8.5 H (6.0-8.0) g/dL Albumin 3.0 L (3.2-4.6) g/dL Ethyl Alcohol (<0.03) % 03/03/19 03/03/19 03/03/19 Range/Units 12:27 12:27 12:27 WBC (4.5-12.0) X10-3/uL RBC (4.30-5.75) x10(6)uL Hgb (13.5-17.8) g/dL Hct (30.0-51.3) % MCV (80-96) fL MCH (27.7-33.6) pg MCHC (32.2-35.4) g/dL RDW (11.5-15.5) % Plt Count (125-369) X10(3)uL MPV (7.4-10.4) fL Neut % (Auto) (46-82) % Lymph % (Auto) (13-37) % Walsh % (Auto) (4-12) % Eos % (Auto) (1.0-5.0) % Baso % (Auto) (0-2) % Neut # (Auto) (1.6-8.3) # Lymph # (Auto) (0.6-5.0) # Walsh # (Auto) (0.0-1.3) # Eos # (Auto) (0.0-0.8) # Baso # (Auto) (0.0-0.2) # PT (8.7-11.1) INR (0.89-1.13) ABG pH (7.35-7.45) ABG pCO2 (35-45) mmHg ABG pO2 (83-108) mmHg ABG HCO3 (22-26) mmol/L ABG O2 Saturation (96-97) % ABG Base Excess (-2-2) Reza Test O2 Delivery Device Sodium (135-145) mmol/L Potassium (3.5-5.3) mmol/L Chloride (100-110) mmol/L Carbon Dioxide (21-32) mmol/L BUN (7-18) mg/dL Creatinine (0.70-1.30) mg/dL Est Cr Clr Drug Dosing Estimated GFR (MDRD) (>60) BUN/Creatinine Ratio (9-20) Glucose (80-116) mg/dL POC Glucose (80-116) mg/dL Lactic Acid 2.6 H (0.4-2.2) mmol/L Calcium (8.6-10.2) mg/dL Magnesium 2.0 (1.8-2.5) mg/dL Total Bilirubin (0.1-1.3) mg/dL Direct Bilirubin (0.10-0.20) mg/dL AST (5-25) IU/L ALT (12-36) U/L Alkaline Phosphatase (56-112) IU/L Total Protein (6.0-8.0) g/dL Albumin (3.2-4.6) g/dL Ethyl Alcohol < 0.03 (<0.03) % 03/03/19 03/03/19 03/03/19 Range/Units 12:29 13:42 13:53 WBC (4.5-12.0) X10-3/uL RBC (4.30-5.75) x10(6)uL Hgb (13.5-17.8) g/dL Hct (30.0-51.3) % MCV (80-96) fL MCH (27.7-33.6) pg MCHC (32.2-35.4) g/dL RDW (11.5-15.5) % Plt Count (125-369) X10(3)uL MPV (7.4-10.4) fL Neut % (Auto) (46-82) % Lymph % (Auto) (13-37) % Walsh % (Auto) (4-12) % Eos % (Auto) (1.0-5.0) % Baso % (Auto) (0-2) % Neut # (Auto) (1.6-8.3) # Lymph # (Auto) (0.6-5.0) # Walsh # (Auto) (0.0-1.3) # Eos # (Auto) (0.0-0.8) # Baso # (Auto) (0.0-0.2) # PT (8.7-11.1) INR (0.89-1.13) ABG pH 7.30 L (7.35-7.45) ABG pCO2 49 H (35-45) mmHg ABG pO2 186 H (83-108) mmHg ABG HCO3 23 (22-26) mmol/L ABG O2 Saturation 100 H (96-97) % ABG Base Excess -3.3 L (-2-2) Reza Test Passed O2 Delivery Device T-piece Sodium (135-145) mmol/L Potassium (3.5-5.3) mmol/L Chloride (100-110) mmol/L Carbon Dioxide (21-32) mmol/L BUN (7-18) mg/dL Creatinine (0.70-1.30) mg/dL Est Cr Clr Drug Dosing Estimated GFR (MDRD) (>60) BUN/Creatinine Ratio (9-20) Glucose (80-116) mg/dL POC Glucose > 500 H* D > 500 H* (80-116) mg/dL Lactic Acid (0.4-2.2) mmol/L Calcium (8.6-10.2) mg/dL Magnesium (1.8-2.5) mg/dL Total Bilirubin (0.1-1.3) mg/dL Direct Bilirubin (0.10-0.20) mg/dL AST (5-25) IU/L ALT (12-36) U/L Alkaline Phosphatase (56-112) IU/L Total Protein (6.0-8.0) g/dL Albumin (3.2-4.6) g/dL Ethyl Alcohol (<0.03) % 03/03/19 Range/Units 13:54 WBC (4.5-12.0) X10-3/uL RBC (4.30-5.75) x10(6)uL Hgb (13.5-17.8) g/dL Hct (30.0-51.3) % MCV (80-96) fL MCH (27.7-33.6) pg MCHC (32.2-35.4) g/dL RDW (11.5-15.5) % Plt Count (125-369) X10(3)uL MPV (7.4-10.4) fL Neut % (Auto) (46-82) % Lymph % (Auto) (13-37) % Walsh % (Auto) (4-12) % Eos % (Auto) (1.0-5.0) % Baso % (Auto) (0-2) % Neut # (Auto) (1.6-8.3) # Lymph # (Auto) (0.6-5.0) # Walsh # (Auto) (0.0-1.3) # Eos # (Auto) (0.0-0.8) # Baso # (Auto) (0.0-0.2) # PT (8.7-11.1) INR (0.89-1.13) ABG pH (7.35-7.45) ABG pCO2 (35-45) mmHg ABG pO2 (83-108) mmHg ABG HCO3 (22-26) mmol/L ABG O2 Saturation (96-97) % ABG Base Excess (-2-2) Reza Test O2 Delivery Device Sodium (135-145) mmol/L Potassium (3.5-5.3) mmol/L Chloride (100-110) mmol/L Carbon Dioxide (21-32) mmol/L BUN (7-18) mg/dL Creatinine (0.70-1.30) mg/dL Est Cr Clr Drug Dosing Estimated GFR (MDRD) (>60) BUN/Creatinine Ratio (9-20) Glucose 595 H* D (80-116) mg/dL POC Glucose (80-116) mg/dL Lactic Acid (0.4-2.2) mmol/L Calcium (8.6-10.2) mg/dL Magnesium (1.8-2.5) mg/dL Total Bilirubin (0.1-1.3) mg/dL Direct Bilirubin (0.10-0.20) mg/dL AST (5-25) IU/L ALT (12-36) U/L Alkaline Phosphatase (56-112) IU/L Total Protein (6.0-8.0) g/dL Albumin (3.2-4.6) g/dL Ethyl Alcohol (<0.03) % Meds: Medications Discontinued Medications Generic Name Dose Route Start Last Admin Trade Name Freq PRN Reason Stop Dose Admin Sodium Chloride 1,000 mls @ 999 mls/hr 03/03/19 12:30 03/03/19 12:57 Normal Saline IV 03/03/19 13:30 999 mls/hr .BOLUS ONE Administration Insulin Human Regular 10 unit/ 500 mls @ 100 mls/hr 03/03/19 14:00 Dextrose/Water IV ASDIRECTED ADRIAN Protocol Potassium Chloride/Sodium Chloride 1,000 mls @ 125 mls/hr 03/03/19 14:00 14:08 Normal Saline With 20 Meq Kcl IV 125 mls/hr ASDIRECTED ADRIAN Administration Insulin Human Regular 100 unit 100 mls @ 13.2 mls/hr 03/03/19 14:15 03/03/19 14:12 / Sodium Chloride IV 0.1 units/kg/hr TITRATE ADRIAN 13.2 mls/hr Administration Protocol 0.1 UNITS/KG/HR Sodium Chloride Confirm 03/03/19 14:11 03/03/19 15:38 Normal Saline Administered 03/03/19 14:12 Not Given Dose 100 mls @ as directed .ROUTE .STK-MED ONE Lactated Ringer's 1,000 mls @ 999 mls/hr 03/03/19 12:45 03/03/19 12:36 Ringers, Lactated IV 03/03/19 13:45 999 mls/hr BOLUS ONE Administration Insulin Human Regular 100 unit 03/03/19 12:28 03/03/19 15:37 Humulin R IV 03/03/19 12:29 Not Given ONETIME STA Insulin Human Regular Confirm 03/03/19 12:29 03/03/19 15:05 Humulin R Administered 03/03/19 12:30 Not Given Dose 300 unit .ROUTE .STK-MED ONE Insulin Human Regular 10 unit 03/03/19 12:30 03/03/19 12:36 Humulin R IV 03/03/19 12:31 10 units ONETIME ONE Administration Insulin Human Regular 10 unit 03/03/19 12:50 03/03/19 12:56 Humulin R IV 03/03/19 12:51 10 units ONETIME ONE Administration Labetalol HCl Confirm 03/03/19 12:50 03/03/19 15:06 Normodyne Administered 03/03/19 12:51 Not Given Dose 20 mg .ROUTE .STK-MED ONE Labetalol HCl 10 mg 03/03/19 13:00 03/03/19 13:02 Normodyne IVPUSH 03/03/19 13:01 10 mg ONETIME ONE Administration Protocol Lorazepam Confirm 03/03/19 12:24 03/03/19 15:03 Ativan Administered 03/03/19 12:25 Not Given Dose 2 mg .ROUTE .STK-MED ONE Lorazepam 1 mg 03/03/19 12:34 03/03/19 12:26 Ativan IVPUSH 03/03/19 12:35 1 mg ONETIME STA Administration Lorazepam Confirm 03/03/19 12:37 03/03/19 15:05 Ativan Administered 03/03/19 12:38 Not Given Dose 2 mg .ROUTE .STK-MED ONE Midazolam HCl Confirm 03/03/19 13:34 03/03/19 15:06 Versed 1 Mg/Ml Administered 03/03/19 13:35 Not Given Dose 2 mg .ROUTE .STK-MED ONE Midazolam HCl Confirm 03/03/19 14:02 03/03/19 15:06 Versed 1 Mg/Ml Administered 03/03/19 14:03 Not Given Dose 2 mg .ROUTE .STK-MED ONE Midazolam HCl Confirm 03/03/19 14:16 03/03/19 15:07 Versed 1 Mg/Ml Administered 03/03/19 14:17 Not Given Dose 2 mg .ROUTE .STK-MED ONE Midazolam HCl Confirm 03/03/19 14:25 03/03/19 15:07 Versed 1 Mg/Ml Administered 03/03/19 14:26 Not Given Dose 2 mg .ROUTE .STK-MED ONE Midazolam HCl Confirm 03/03/19 14:35 03/03/19 15:07 Versed 1 Mg/Ml Administered 03/03/19 14:36 Not Given Dose 2 mg .ROUTE .STK-MED ONE Midazolam HCl 2 mg 03/03/19 13:34 03/03/19 13:43 Versed 1 Mg/Ml IVPUSH 03/03/19 13:35 2 mg ONETIME ONE Administration Midazolam HCl 2 mg 03/03/19 14:02 03/03/19 14:03 Versed 1 Mg/Ml IVPUSH 03/03/19 14:03 2 mg ONETIME ONE Administration Midazolam HCl 2 mg 03/03/19 14:16 03/03/19 14:24 Versed 1 Mg/Ml IVPUSH 03/03/19 14:17 2 mg ONETIME ONE Administration Midazolam HCl 2 mg 03/03/19 16:25 03/03/19 14:20 Versed 1 Mg/Ml IVPUSH 03/03/19 16:26 2 mg ONETIME ONE Administration Midazolam HCl 2 mg 03/03/19 14:35 03/03/19 14:37 Versed 1 Mg/Ml IVPUSH 03/03/19 14:36 2 mg ONETIME ONE Administration Propofol 200 mg 03/03/19 13:13 03/03/19 13:13 Diprivan 20 Ml IVPUSH 03/03/19 13:14 200 mg ONETIME ONE Administration Succinylcholine Chloride 140 mg 03/03/19 13:14 03/03/19 13:14 Quelicin IV 03/03/19 13:15 140 mg ONETIME ONE Administration Departure - Departure Time of Disposition: 15:00 Disposition: DC/Tfer to Acute Hospital 02 Condition: Fair Clinical Impression: Intractable seizure disorder, Hyperglycemia - Discharge Information Referrals: Stan Hughes MD [Primary Care Provider] - Forms: ED Department Discharge - My Orders Last 24 Hours: My Active Orders 03/03/19 12:23 Head wo Cont [CT] Stat EKG 12 Lead [EK] Routine 03/03/19 12:24 EKG Documentation Completion [RC] ASDIRECTED 03/03/19 12:30 Accu Check [Blood Glucose Check, Bedside] [RC] ONETIME 03/03/19 13:30 Insert Vega Catheter [Insert Urinary Catheter] [OM.PC] Q24H 03/03/19 13:31 Chest 1V Frontal [CR] Stat 03/03/19 13:57 Accu Check [Blood Glucose Check, Bedside] [RC] ONETIME 03/03/19 17:01 Urinary Catheter Assessment [RC] QSHIFT - Assessment/Plan Last 24 Hours: My Active Orders 03/03/19 12:23 Head wo Cont [CT] Stat EKG 12 Lead [EK] Routine 03/03/19 12:24 EKG Documentation Completion [RC] ASDIRECTED 03/03/19 12:30 Accu Check [Blood Glucose Check, Bedside] [RC] ONETIME 03/03/19 13:30 Insert Vgea Catheter [Insert Urinary Catheter] [OM.PC] Q24H 03/03/19 13:31 Chest 1V Frontal [CR] Stat 03/03/19 13:57 Accu Check [Blood Glucose Check, Bedside] [RC] ONETIME 03/03/19 17:01 Urinary Catheter Assessment [RC] QSHIFT
[2019-03-03] MEDS ORDERED: Lactated Ringers 1,000 ML IV ONE (12:45)
[2019-03-03] MEDS ORDERED: Labetalol 20 MG/4 ML Syringe ONE (12:50)
[2019-03-03] MEDS ORDERED: Labetalol 20 MG/4 ML Syringe IVPUSH ONE (13:00)
[2019-03-03] MEDS ORDERED: Propofol 200 MG/20 ML SDV IVPUSH ONE (13:13)
[2019-03-03] MEDS ORDERED: Succinylcholine 200 MG/10 ML MDV IV ONE (13:14)
[2019-03-03] MEDS ORDERED: Midazolam 1 MG/ML 2 ML SDV IVPUSH ONE ×5 (13:34→16:25)
[2019-03-03] MEDS ORDERED: Midazolam 1 MG/ML 2 ML SDV ONE ×5 (13:34→14:35)
[2019-03-03] MEDS ORDERED: NS + KCl 20mEq/L 1,000 ML IV SCH (14:00)
[2019-03-03] MEDS ORDERED: Insulin Regular, Human 10 UNIT in Dextrose 10% in Water 499.9 ML IV SCH ×2 (14:00)
--- NOTE | 2019-03-03 14:10 | PCM.SN ---
- Free Text/Narrative Note: [facility] Date: 03/03/2019 Time: 1310 - 1320 Pre-procedure: Acute Respiratory Distress, LOC and Seizures Postprocedure: Emergency Intubation I was called by the ED physician and requested to intubate this patient. Upon arrival, this patient had an oral airway in place, SpO2 was 92% via a nonrebreather mask, tachycardia [120's] and partial airway obstruction breathing pattern. I proceeded to intubate this patient using the [place]-scope # 4 handle. IV medications given were 200 mg's of Propofol and 140 mg's Succinylcholine. Dentures were removed and the intubation went smoothly X 1 attempt with BBSE / + EtCO2 return. The ETT was secured at 23 cm to his lip. He tolerated this well with slight BP drop to 98/64 butt returned nicely to over 110 systolic. After about 10 minutes, I did order that 2 mg's of Versed to be given for ventilation control. CXR is pending. Thank You CHRISTO Marsh CRNA.
[2019-03-03] MEDS ORDERED: Sodium Chloride 0.9% 100 ML ONE (14:11)
[2019-03-03 15:25] VITALS: BP 187/115
--- NOTE | 2019-03-05 11:41 | CR ---
INDICATION: ET tube placement. CHEST: A single supine view of the chest was obtained 03/03/19 and compared with 09/19/18, revealing an endotracheal tube in good position, approximately 4 cm superior to the peri. There is an appearance of mass density in the aortopulmonary window area, raising question of malignancy, not present on the previous study of 09/19/18. There also may be pleural parenchymal change at the left lung base, possibly pneumonia and pleuritis, although neoplastic process cannot be excluded. The right lung and pleural space appeared unremarkable. The heart appears to be enlarged. IMPRESSION: 1. Satisfactory ET tube placement. 2. Findings are compatible with a mass at the aortopulmonary window and infiltrate and possibly effusion at the left lung base. 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 MTDD
== END 2019-03-03 14:50 ==
LOC: FB.ED 12:19
DX: G40.419 Other generalized epilepsy and epileptic syndromes, intractable, without status epilepticus (principal); I16.1 Hypertensive emergency; I10 Essential (primary) hypertension; E11.65 Type 2 diabetes mellitus with hyperglycemia; E87.1 Hypo-osmolality and hyponatremia; F10.10 Alcohol abuse, uncomplicated; Z90.49 Acquired absence of other specified parts of digestive tract; E66.9 Obesity, unspecified; M19.90 Unspecified osteoarthritis, unspecified site; Z86.718 Personal history of other venous thrombosis and embolism; Z86.73 Personal history of transient ischemic attack (TIA), and cerebral infarction without residual deficits; Z79.82 Long term (current) use of aspirin; Z79.4 Long term (current) use of insulin; Z88.8 Allergy status to other drugs, medicaments and biological substances; Z68.41 Body mass index [BMI] 40.0-44.9, adult
CPT/HCPCS: 31500; 36415; 36600; 51702; 70450; 71045; 80048; 80076; 82803; 82947; 82962; 83605; 83735; 85025; 85610; 93005; 93010; 96361; 96374; 96375; 96376; 99285; G0480; J0330; J1815; J2060; J2250; J2704; J3480; J3490; J7030; J7120; 94002; 96365; 96366